=== PATIENT | female | born 1965 | race Caucasian/White ===

== ENCOUNTER 2018-08-18 11:37 | Outpatient (REF) | payer MEDICARE, SELFPAY ==
[2018-08-18 13:32] LABS: T4 13.4 ug/dL (4.5-12.5)
[2018-08-18 21:26] LABS: T3,Free 2.6 pg/ml (2.8-5.3)
[2018-08-19 09:51] LABS: Thyroglobulin Antibody 23 U/mL (<61); Thyroperoxidase Antibody 36 U/mL (<61)
[2018-08-19 16:44] LABS: Thyroglobulin Antibody <1.8 IU/mL (<4.0); Thyroglobulin Tumor Marker 0.8 ng/mL
== END 2018-08-18 11:57 ==
LOC: NCHCN 11:37
PROVIDERS: PCP Nurse Practitioner Gerontology; Visit Provider Nurse Practitioner
DX: Z85.850 Personal history of malignant neoplasm of thyroid (principal); Z90.89 Acquired absence of other organs
CPT/HCPCS: 86376; 84432; 84436; 84443; 84481; 86800

== ENCOUNTER 2018-11-22 17:52 | Emergency (ER) | payer MEDICARE, SELFPAY ==
[2018-11-22 18:14] VITALS: BP 160/88; PULSE 80; RESP 16; TEMP 37.2; O2SAT 95
[2018-11-22 19:16] VITALS: RESP 16
--- NOTE | 2018-11-22 19:24 | ED.GENADUL_ITS ---
Discharge Plan Disposition Patient Disposition: HOME Discharge Details Chief Complaint: GenMedical Clinical Impression: Sciatica Primary Care Provider: Santa Serrano ED Provider: Akash Heath Home Meds and New Rx's Prescriptions: New lidocaine 5 % adhesive patch,medicated 1 patch TP DAILY Qty: 15 RF: 0 Continued lisinopril 2.5 MG tablet 40 mg PO DAILY Qty: 90 RF: 3 pioglitazone 15 mg Tablet 15 mg PO DAILY RF: 0 atorvastatin 40 mg Tablet 40 mg PO DAILY RF: 0 aspirin [Aspir-81] 81 mg Tablet,Delayed Release (Dr/Ec) 1 tab PO DAILY RF: 0 levothyroxine 25 mcg Tablet 225 mcg PO DAILY RF: 0 calcitriol 0.25 mcg Capsule 1 tab PO DAILY RF: 0 Levemir FlexTouch U-100 Insuln 100 unit/mL (3 mL) Insulin Pen 30 units subcut BID RF: 0 Dexilant 60 mg Capsule,Biphase Delayed Releas 1 cap PO DAILY RF: 0 Eliquis 2.5 mg Tablet 2.5 mg PO BID RF: 0 Discharge Instructions Instructions: Sciatica (ED) Additional Instructions: Please use lidocaine patches as prescribed. Please take Tylenol 650 mg every 6 hours as needed for pain. For severe pain that is refractory to treatment above, please take ibuprofen 200mg every 6 hours. Please follow-up with your primary care physician. Return to the ER for any worsening or new concerning symptoms. Referrals: Santa Serrano, [employer] [Primary Care Provider] - Medical Decision Making 53-year-old female with multiple medical problems here with right lower extremity pain that radiates intermittently from her low back/buttock into her lateral right leg. Positive straight leg test. Patient is neurovascular intact distally with strong pulses. No signs of cauda equina syndrome. Suspect sciatica. Plan to treat with Toradol IV low dose and lidocaine patch. Patient was instructed to use acetaminophen and lidocaine patches and to only use ibuprofen for severe pain given potential interaction with some of her other medications. I encouraged her to follow-up with her primary care physician and to return should have any worsening or new concerning symptoms. HPI General Mode of arrival: ambulatory . Date/Time Provider Initiated Documentation: 11/22/18 18:11 . Limitations to Documentation: no limitations . Information obtained by: patient . HPI Narrative: 53-year-old female with multiple medical problems include congenital mutism, here with chief complaint of leg pain. Patient notes pain in her right lateral leg that radiates from her buttock down to her ankle started about 3-4 days ago and has persisted. Pain is sharp. Pain is severe at times. No associated numbness. A coater carbon paper was utilized for history, examination, and explanation of treatment plan. Related Data Home Medications Medication Instructions Recorded Confirmed lisinopril 40 mg PO DAILY #90 tab-cap 09/12/14 11/22/18 Dexilant 1 cap PO DAILY 11/22/18 11/22/18 Eliquis 2.5 mg PO BID 11/22/18 11/22/18 Levemir FlexTouch U-100 Insuln 30 units SUBCUT BID 11/22/18 11/22/18 aspirin [Aspir-81] 1 tab PO DAILY 11/22/18 11/22/18 atorvastatin 40 mg PO DAILY 11/22/18 11/22/18 calcitriol 1 tab PO DAILY 11/22/18 11/22/18 levothyroxine 225 mcg PO DAILY 11/22/18 11/22/18 lidocaine 1 patch TP DAILY #15 each 11/22/18 pioglitazone 15 mg PO DAILY 11/22/18 11/22/18 Previous Rx's Medication Instructions Recorded lidocaine 1 patch TP DAILY #15 each 11/22/18 Allergies Allergy/AdvReac Type Severity Reaction Status Date / Time No Known Allergies Allergy Unverified 10/13/14 21:19 General Stated Complaint: GenMedical DARRON: 3 Review of Systems Constitutional Denies fever(s) Gastrointestinal Denies abdominal pain Musculoskeletal Reports radiating pain into limb and Reports other (Right lower back pain) Neurologic Reports as per HPI [facility] Surgical History Abdominal hysterectomy Endometrial Biopsy (03/01/14) Family History Mother Essential hypertension Father No problems noted. Sister Mental disorder Grandfather Mental disorder Grandfather No problems noted. Grandmother No problems noted. Grandmother No problems noted. Social History Smoking and Tabacco status: Current every day Exam Const General: cooperative and no acute distress HENMT Head: normocephalic and atraumatic Mouth: moist mucous membranes Eyes Conjunctivae: normal conjunctivae Sclera: normal sclerae EOM: EOM intact bilaterally Neck Neck: trachea midline and supple Resp Auscultation: clear to auscultation bilaterally, no rales, no rhonchi and no wheezes Cardio Jugular venous pressure: no JVD Rate: regular rate and not tachycardic Rhythm: regular rhythm GI Palpation: soft, not firm, no guarding, no masses, not rigid and nontender Other: No swelling or tenderness of groin Back/Spine/Pelvis Thoracic/Lumbar Spine: straight leg raise positive and other (Paraspinal right lumbar) Skin General skin exam: no rashes or lesions noted Neuro General: alert, awake, oriented x3 and tone normal Motor: other (LE strength 5/5) Sensory Exam: no sensory deficits noted and other (no saddle anesth) Extrem General: no edema Psych Appearance: grossly normal Mental Status: mental status grossly normal Course Vital Signs Temperature 37.2 C 11/22/18 18:14 Pulse 80 11/22/18 18:14 Respiratory Rate 16 11/22/18 18:14 Blood Pressure 160/88 H 11/22/18 18:14 Pulse Oximetry 95 11/22/18 18:14 Temperature 37.2 C 11/22/18 18:14 Temperature Source Skin 11/22/18 18:14 Pulse 80 11/22/18 18:14 Respiratory Rate 16 11/22/18 19:16 Respiratory Effort Non-Labored 11/22/18 19:16 Respiratory Depth Normal 11/22/18 19:16 Respiratory Pattern Normal 11/22/18 19:16 Blood Pressure 160/88 H 11/22/18 18:14 Blood Pressure Position Sitting 11/22/18 18:14 Pulse Oximetry 95 11/22/18 18:14 Oxygen Delivery Method Room Air 11/22/18 18:14 Oxygen Flow Rate 0 11/22/18 18:14
[2018-11-22] MEDS: Acetaminophen 325 MG TAB 650 MG PO (19:41)
[2018-11-22] MEDS: Lidocaine 5% Patch 1 PATCH (19:41)
[2018-11-22] MEDS: Ketorolac 15 MG/ML VIAL IVP (19:42)
[2018-11-22 19:59] VITALS: BP 140/68; PULSE 80; RESP 16; TEMP 37.2; O2SAT 95
== END 2018-11-22 19:57 | disposition home or self-care (01) ==
PROVIDERS: Emergency Provider Student in an Organized Health Care Education/Training Program; PCP Nurse Practitioner Gerontology
DX: M54.31 Sciatica, right side (principal); H91.3 Deaf nonspeaking, not elsewhere classified; J44.9 Chronic obstructive pulmonary disease, unspecified; F17.210 Nicotine dependence, cigarettes, uncomplicated; E11.9 Type 2 diabetes mellitus without complications; Z79.4 Long term (current) use of insulin; I10 Essential (primary) hypertension
CPT/HCPCS: 96374; 99284; J1885

== ENCOUNTER 2019-02-15 14:12 | Outpatient (CLI) | payer MEDICARE, SELFPAY ==
[2019-02-15 15:16] LABS: Hemoglobin A1C 8.2 % (4.5-6.2)
[2019-02-15 15:26] LABS: TSH 0.02 uIU/mL (0.358-3.74)
== END 2019-02-15 14:32 ==
PROVIDERS: PCP Nurse Practitioner Gerontology; Visit Provider Internal Medicine Endocrinology, Diabetes & Metabolism
DX: E11.65 Type 2 diabetes mellitus with hyperglycemia (principal); Z79.4 Long term (current) use of insulin
CPT/HCPCS: 36415; 83036; 84443

== ENCOUNTER 2019-06-28 16:35 | Outpatient (REF) | payer MEDICARE, SELFPAY ==
[2019-06-28 23:05] LABS: Hemoglobin A1C 7.4 % (4.5-6.2)
[2019-06-28 23:17] LABS: FREE T4 1.25 ng/dL (0.76-1.46); TSH 0.43 uIU/mL (0.36-3.74)
[2019-06-29 17:20] LABS: T3,Free 2.8 pg/ml (2.8-5.3)
== END 2019-06-28 16:55 ==
LOC: NCHCN 16:35
PROVIDERS: PCP Family Medicine; Visit Provider Family Medicine
DX: E11.9 Type 2 diabetes mellitus without complications (principal); E03.9 Hypothyroidism, unspecified
CPT/HCPCS: 83036; 84439; 84443; 84481

== ENCOUNTER 2019-08-09 10:53 | Outpatient (CLI) | payer MEDICARE, SELFPAY ==
--- NOTE | 2019-08-09 13:25 | DI.MAMMO_ITS ---
EXAM: MAMMO SCREENING CLINICAL HISTORY: SCREENING, Z12.31 TECHNIQUE: Mammograms were interpreted according to the usual protocol including computer analysis w [employer] CAD system, tomosynthesis and C-view imaging. FINDINGS: The breasts are of moderate density. There are multiple well-circumscribed intra mammary nodules see n. A nodule in the upper outer quadrant of the right breast appears to have increased in size in comp [place] with examination of February/2014 now measuring about 12 millimeters in greatest diameter. Ultras ound suggested for correlation. No other significant change seen. IMPRESSION: Right breast ultrasound recommended for 12 millimeter well-circumscribed mass which is increased in s ize in comparison with prior study. Category 0. Breast density, category B. BI-RADS Cat 0 - Assessment Incomplete: Need additional imaging evaluation. Breast Density - Category B - Scattered areas of fibroglandular density. Patient will receive a letter notifying them of these results.
== END 2019-08-09 11:13 ==
PROVIDERS: PCP Internal Medicine; Visit Provider Family Medicine
DX: Z12.31 Encounter for screening mammogram for malignant neoplasm of breast (principal); R92.8 Other abnormal and inconclusive findings on diagnostic imaging of breast
CPT/HCPCS: 77063; 77067

== ENCOUNTER 2019-09-11 14:49 | Emergency (ER) | payer MEDICARE, SELFPAY ==
[2019-09-11 14:56] VITALS: BP 135/73; PULSE 79; RESP 18; TEMP 36.6; O2SAT 96
--- NOTE | 2019-09-11 15:49 | W.ED.GENAD ---
Discharge Plan Disposition Patient Disposition: HOME Condition: Stable Discharge Details Chief Complaint: Orthopedic Clinical Impression: Cellulitis, Foot arthropathy Primary Care Provider: Aviva Reece ED Provider: Karen Mondragon Home Meds and New Rx's Prescriptions: New cephalexin [Keflex] 500 mg capsule 500 mg PO TID 7 Days Qty: 21 RF: 0 Continued lisinopril 2.5 MG tablet 40 mg PO DAILY Qty: 90 RF: 3 atorvastatin 40 mg Tablet 40 mg PO DAILY RF: 0 aspirin [Aspir-81] 81 mg Tablet,Delayed Release (Dr/Ec) 1 tab PO DAILY RF: 0 levothyroxine 25 mcg Tablet 175 mcg PO DAILY RF: 0 calcitriol 0.25 mcg Capsule 1 tab PO DAILY RF: 0 Levemir FlexTouch U-100 Insuln 100 unit/mL (3 mL) Insulin Pen 30 units subcut BID RF: 0 Dexilant 60 mg Capsule,Biphase Delayed Releas 1 cap PO DAILY RF: 0 Eliquis 2.5 mg Tablet 2.5 mg PO BID RF: 0 No Action Victoza 2-Roberto 0.6 mg/0.1 mL (18 mg/3 mL) Pen Injector SUBCUT DAILY RF: 0 ropinirole [Requip] 0.25 mg Tablet 0.25 mg PO HS RF: 0 metoprolol tartrate 37.5 mg Tablet 40 mg PO DAILY RF: 0 Discharge Instructions Instructions: Cellulitis (ED) Additional Instructions: Avoid footwear that is tight and presses on the top of your foot. Be sure to wear stretchable loose foot wear, rest and elevate your left foot is much as possible. Take Tylenol as needed and directed for pain. Take the antibiotics until finished. Call tomorrow to schedule a follow-up appointment with podiatry for further evaluation. Return to the emergency department if you develop any worsening or new concerning symptoms such as fever, increased pain, redness or swelling. Referrals: Evelio Andrade DPM [[facility]] - Discharge Data Discharge Date/Time-TO BE ENTERED AT DEPARTURE: 09/11/19 17:10 Discharge Physician: Karen Mondragon Medical Decision Making 54-year-old female with a history of asthma, COPD, deaf mutism, hypertension, diabetes, pulmonary embolism on Eliquis presents with left foot pain since last night. History provided through sign language line. She has a bony protuberance that appears likely consistent with longstanding bony deformity either from footwear or congenital. There is mild surrounding erythema consistent with either irritation from shoes or a very mild early cellulitis. There is no other erythema, edema on the foot or ankle. First MTP joint normal to inspection. Neurovascularly intact. Patient was concerned about her foot due to her history of diabetes or concerned about a broken bone. Will obtain an x-ray and give a dose of Tylenol. If x-ray negative, will give a prescription for antibiotics for possible early cellulitis and have patient follow-up with podiatry for reevaluation. 1654 --x-ray noted degenerative changes and an old unhealed avulsion fracture but no acute fracture or dislocation. Patient feels better. Results and plan provided through language line. Discussed that this appears likely due to a chronic malformation of the bone with a possible corn versus early infection developing on top of the bone due to irritation and rubbing. Patient advised the importance of wearing stretchable soft footwear, rest, elevate and take Tylenol as needed. She was sent home with a prescription for Keflex. She was advised to call podiatry tomorrow for follow-up and for annual foot exams with her history of diabetes. Medical Records Medical records reviewed: Yes I reviewed the patient's medical records. Imaging Data Radiologic Study: Radiologist's impression: XR Left Foot Complete Exam date and time: 09/11/2019 4:23 PM Age: 54 years old Clinical history: Left; Patient HX: Foot pain/corn top of foot radiating to L 1st toe TECHNIQUE: Imaging protocol: XR Left foot. Views: 3 or more views. COMPARISON: No relevant prior studies available. FINDINGS: Bones/joints: There is no evidence of acute fracture.There is no evidence of malalignment or dislocation. Degenerative changes in the tarsometatarsal joints. Well-corticated Unhealed avulsion fracture over the dorsal aspect of the tarsometatarsal joints. Soft tissues: Normal. IMPRESSION: 1. There is no evidence of acute fracture.There is no evidence of malalignment or dislocation. 2. Degenerative changes in the tarsometatarsal joints. 3. Well-corticated Unhealed avulsion fracture over the dorsal aspect of the tarsometatarsal joints. HPI General Date/Time Provider Initiated Documentation: 09/11/19 15:05. History of Present Illness 54 year old F presents to the emergency department with the chief complaint of L foot pain, described as moderate, Quality is described as aching and sharp, and is localized to the lower extremity (L foot ). Patient reports no radiation. Patient started experiencing this day(s) (since last night) and it has been constant. No relieving factors improve symptom(s), Other factors that worsen symptoms (to touch) . Patient notes no other symptoms.. Patient did receive the following treatments prior to arrival, none Related Data Home Medications Medication Instructions Recorded Confirmed lisinopril 40 mg PO DAILY #90 tab-cap 09/12/14 09/11/19 Dexilant 1 cap PO DAILY 11/22/18 09/11/19 Eliquis 2.5 mg PO BID 11/22/18 09/11/19 Levemir FlexTouch U-100 Insuln 30 units SUBCUT BID 11/22/18 09/11/19 aspirin [Aspir-81] 1 tab PO DAILY 11/22/18 09/11/19 atorvastatin 40 mg PO DAILY 11/22/18 09/11/19 calcitriol 1 tab PO DAILY 11/22/18 09/11/19 levothyroxine 175 mcg PO DAILY 11/22/18 09/11/19 cephalexin [Keflex] 500 mg PO TID 7 Days #21 cap 09/11/19 liraglutide [Victoza 2-Roberto] mg SUBCUT DAILY 09/11/19 metoprolol tartrate 40 mg PO DAILY 09/11/19 ropinirole [Requip] 0.25 mg PO HS 09/11/19 09/11/19 Previous Rx's Medication Instructions Recorded cephalexin [Keflex] 500 mg PO TID 7 Days #21 cap 09/11/19 Allergies Allergy/AdvReac Type Severity Reaction Status Date / Time No Known Allergies Allergy Unverified 09/11/19 15:10 General Stated Complaint: Orthopedic DARRON: 3 Review of Systems All systems reviewed & are unremarkable except as noted in HPI and below Constitutional Constitutional: Reports as per HPI, Denies chills and Denies fever(s) Eyes Eyes: Denies blurry vision ENT Ears, Nose, Mouth, and Throat: Denies dizziness, Denies sore throat and Denies throat swelling Cardiovascular Cardiovascular: Denies chest pain and Denies dyspnea Respiratory Respiratory: Denies cough and Denies dyspnea Gastrointestinal Gastrointestinal: Denies abdominal pain, Denies diarrhea and Denies vomiting Genitourinary Genitourinary: Denies hematuria and Denies dysuria Musculoskeletal Musculoskeletal: Denies back pain and Denies numbness Integumentary/Breasts Skin/Breast: Denies lesions and Denies rash Neurologic Neurologic: Denies dizziness, Denies focal weakness and Denies numbness Allergic/Immunologic Allergic/Immunologic: Denies throat swelling [facility] Medical History Asthma (Inactive) COPD (chronic obstructive pulmonary disease) (Chronic) Deaf-mutism, congenital (Inactive) Hyperlipidemia (Inactive) Hypertension (Inactive) Insulin dependent diabetes mellitus (Inactive) Pulmonary embolism (Chronic) Surgical History Abdominal hysterectomy [facility] 03/22/14 [facility] Endometrial Biopsy (03/01/14) [facility] History of thyroidectomy (Chronic) Family History Mother Essential hypertension Father No problems noted. Sister Mental disorder OCD Grandfather Mental disorder ALZ Grandfather No problems noted. Grandmother No problems noted. Grandmother No problems noted. Social History Smoking/Tobacco Use Status: Current every day Drug use: Never Do you feel safe in your relationship?: Yes Exam Const General: cooperative, healthy appearing and no acute distress [facility] Head: normal to inspection Mouth: oral mucosae normal Eyes General: appearance normal, both eyes and all related structures Neck Neck: normal visual inspection Resp Effort & Inspection: normal respiratory effort and able to speak in complete sentences Cardio Rate: regular rate Skin General skin exam: no rashes or lesions noted Neuro General: alert, awake and oriented x3 Motor: muscle tone normal throughout Extrem Ankle/foot/toe images: 1. Bony protuberance with mild overlying erythema and significant tenderness to palpation. 2. Tenderness extends from bony protuberance down to great w/o edema, erythema, ecchymosis, lesions or rash. No evidence of erythematous, hot, tender first MTP joint. Other: L DP/PT pulses intact. Left ankle without evidence of trauma, tenderness or infection. Left heel nontender Psych Appearance: grossly normal Affect: normal affect Course Vital Signs Vital signs: Vital Signs Temperature 97.9 F 09/11/19 14:56 Pulse 79 09/11/19 14:56 Respiratory Rate 18 09/11/19 14:56 Blood Pressure 135/73 09/11/19 14:56 Pulse Oximetry 96 09/11/19 14:56 Temperature 97.9 F 09/11/19 14:56 Temperature Source Temporal Artery Scan 09/11/19 14:56 Pulse 79 09/11/19 14:56 Respiratory Rate 18 09/11/19 14:56 Respiratory Effort 09/11/19 15:27 Blood Pressure 135/73 09/11/19 14:56 Blood Pressure Position Sitting 09/11/19 14:56 Pulse Oximetry 96 09/11/19 14:56 Oxygen Delivery Method Room Air 09/11/19 14:56 Oxygen Flow Rate 0 09/11/19 14:56
[2019-09-11] MEDS: Acetaminophen 500 MG TAB 1000 MG PO (15:59)
--- NOTE | 2019-09-11 16:20 | DI.RAD_ITS ---
EXAM: XR FOOT LT COMPLETE INDICATION: foot pain/corn top of foot radiating to L 1st toe. COMPARISON: No exams were available for comparison TECHNIQUE: 2D digital imaging was performed. FINDINGS: No acute fracture or dislocation is seen. There are degenerative changes with prominent spurring at the tarsal metatarsal joints. A small heel spur is seen. IMPRESSION: No acute abnormality.
--- NOTE | 2019-09-11 16:33 | DI.VRAD_ITS ---
PROCEDURE INFORMATION: Exam: XR Left Foot Complete Exam date and time: 09/11/2019 4:23 PM Age: 54 years old Clinical history: Left; Patient HX: Foot pain/corn top of foot radiating to L 1st toe TECHNIQUE: Imaging protocol: XR Left foot. Views: 3 or more views. COMPARISON: No relevant prior studies available. FINDINGS: Bones/joints: There is no evidence of acute fracture.There is no evidence of malalignment or dislocation. Degenerative changes in the tarsometatarsal joints. Well-corticated Unhealed avulsion fracture over the dorsal aspect of the tarsometatarsal joints. Soft tissues: Normal. IMPRESSION: 1. There is no evidence of acute fracture.There is no evidence of malalignment or dislocation. 2. Degenerative changes in the tarsometatarsal joints. 3. Well-corticated Unhealed avulsion fracture over the dorsal aspect of the tarsometatarsal joints. Dictated and Authenticated by: Rochelle Salinas MD. Ordering:ADRIANNA Jones MD
== END 2019-09-11 17:10 | disposition home or self-care (01) ==
PROVIDERS: Emergency Provider Physician Assistant; PCP Family Medicine
DX: L03.116 Cellulitis of left lower limb (principal); M12.872 Other specific arthropathies, not elsewhere classified, left ankle and foot; I10 Essential (primary) hypertension; J44.9 Chronic obstructive pulmonary disease, unspecified; F17.210 Nicotine dependence, cigarettes, uncomplicated; E11.9 Type 2 diabetes mellitus without complications; Z79.4 Long term (current) use of insulin
CPT/HCPCS: 99284; 73630

== ENCOUNTER 2019-09-23 19:20 | Emergency (ER) | payer MEDICARE, SELFPAY ==
[2019-09-23] VITALS (39 sets, daily range): BP systolic 135–159; BP diastolic 56–93; PULSE 75–94; RESP 9–26; TEMP 36.4; O2SAT 92–98
--- NOTE | 2019-09-23 19:56 | ED.GENADUL_ITS ---
Discharge Plan Disposition Patient Disposition: HOME Condition: Stable Discharge Details Chief Complaint: Chest Pain Clinical Impression: Gastritis Primary Care Provider: Aviva Reece ED Provider: Dez Mcneil Home Meds and New Rx's Prescriptions: New sucralfate [Carafate] 1 gram tablet 1 gm PO BID Qty: 10 RF: 0 Continued lisinopril 2.5 MG tablet 40 mg PO DAILY Qty: 90 RF: 3 atorvastatin 40 mg Tablet 40 mg PO DAILY RF: 0 aspirin [Aspir-81] 81 mg Tablet,Delayed Release (Dr/Ec) 1 tab PO DAILY RF: 0 levothyroxine 25 mcg Tablet 175 mcg PO DAILY RF: 0 calcitriol 0.25 mcg Capsule 1 tab PO DAILY RF: 0 Levemir FlexTouch U-100 Insuln 100 unit/mL (3 mL) Insulin Pen 30 units subcut BID RF: 0 Dexilant 60 mg Capsule,Biphase Delayed Releas 1 cap PO DAILY RF: 0 Eliquis 2.5 mg Tablet 2.5 mg PO BID RF: 0 Victoza 2-Roberto 0.6 mg/0.1 mL (18 mg/3 mL) Pen Injector SUBCUT DAILY RF: 0 ropinirole [Requip] 0.25 mg Tablet 0.25 mg PO HS RF: 0 metoprolol tartrate 37.5 mg Tablet 40 mg PO DAILY RF: 0 Discharge Instructions Instructions: Gastritis (ED) Additional Instructions: You may benefit from sleeping with the head of the bed elevated 2-3 pillows. Please observe a bland diet. Please take Carafate as prescribed twice daily for 5 days. Continue all of your regularly prescribed medications. Return if you develop a fever, worsening discomfort, or any other acute concerns. Medical Decision Making <Dez Mcneil MD - Last Filed: 09/23/19 22:52> 54-year-old female presents from home with her partner. She communicates primarily through sign language and an automotive parts interpreter was utilized during communication. She states she is had 3 hours epigastric pressure sensation. She states it was worse after eating greasy breakfast foods. She did not vomit. She has not had difficulty breathing. She continues to take Eliquis for history of PE. 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 She has unremarkable vital signs, she has tenderness in the epigastrium on palpation, but no evidence of rebound or guarding. Differential diagnosis includes GERD, esophageal spasm, acute coronary syndrome, biliary colic. Patient given GI cocktail, screening laboratories obtained, she is referred for EKG and chest x-ray. Laboratories: White blood cell count 9, hematocrit 48, platelets 286. Sodium 140, potassium 3.9, chloride 102, bicarb 31, BUN 17, creatinine 1.0, glucose 190, AST 16, ALT 22, alk phos 132. Chest radiograph with minor right midlung field linear scar, versus atelectasis. 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 Consistent with patient's stated history. CT abdomen: Notes unremarkable bowel pattern, no obstruction no inflammation. Normal appendix. No free air. No acute findings noted. Patient observed on desk monitor. Pulse and blood pressure both improved to 149/64 with a pulse of 78. Discussed with the patient that this is likely gastritis and will benefit from conservative management and dietary improvements. If second troponin is negative, anticipate discharge to home. Please see Dr Mckeon note regarding final impression and disposition. ECG Data Attestation: I personally reviewed and interpreted this ECG (s) as follows: Prior ECG tracings: available for review Interpretation: Normal sinus rhythm with a rate of 86, left bundle branch block pattern. Nonspecific T wave changes present inferiorly. There is no ST segment elevation. Most recent comparison is from September 2014. The left bundle branch is new since that time, patient does note chest surgery in the interim as per my HPI. <Ney Cast MD - Last Filed: 09/23/19 23:45> pt's second troponin negative, only has minimal pain now. Feel she is safe for d/c and advised f/u with pcp and return precautions given HPI <Dez Mcneil MD - Last Filed: 09/23/19 22:52> General Mode of arrival: ambulatory . Date/Time Provider Initiated Documentation: 09/23/19 19:22 . Limitations to Documentation: language barrier . 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 History of Present Illness 54 year old F presents to the emergency department with the chief complaint of Epigastric pressure sensation since eating 3 hours ago, described as moderate, Quality is described as constant, and is localized to the abdomen. Patient abdomen. Patient started experiencing this hour(s) and it has been constant. No relieving factors improve symptom(s), Eating worsens symptoms . Patient notes loss of appetite. Patient did receive the following treatments prior to arrival, none HPI Narrative: HPI obtained with assistance of automotive parts interpreter Related Data Home Medications Medication Instructions Recorded Confirmed lisinopril 40 mg PO DAILY #90 tab-cap 09/12/14 09/23/19 Dexilant 1 cap PO DAILY 11/22/18 09/23/19 Eliquis 2.5 mg PO BID 11/22/18 09/23/19 Levemir FlexTouch U-100 Insuln 30 units SUBCUT BID 11/22/18 09/23/19 aspirin [Aspir-81] 1 tab PO DAILY 11/22/18 09/23/19 atorvastatin 40 mg PO DAILY 11/22/18 09/23/19 calcitriol 1 tab PO DAILY 11/22/18 09/23/19 levothyroxine 175 mcg PO DAILY 11/22/18 09/23/19 Victoza 2-Roberto mg SUBCUT DAILY 09/11/19 metoprolol tartrate 40 mg PO DAILY 09/11/19 09/23/19 ropinirole [Requip] 0.25 mg PO HS 09/11/19 09/23/19 sucralfate [Carafate] 1 gm PO BID #10 tab 09/23/19 Previous Rx's Medication Instructions Recorded sucralfate [Carafate] 1 gm PO BID #10 tab 09/23/19 Allergies Allergy/AdvReac Type Severity Reaction Status Date / Time tramadol Allergy Severe Hives Unverified 09/23/19 19:57 General Stated Complaint: Chest Pain DARRON: 2 Review of Systems <Dez Mcneil MD - Last Filed: 09/23/19 22:52> Narrative: Anticoagulated with Eliquis which she states she has been taking. No recent changes to medications. Denies difficulty breathing, fever. 6 systems reviewed and otherwise negative PFSH <Dez Mcneil MD - Last Filed: 09/23/19 22:52> Medical History Asthma (Inactive) COPD (chronic obstructive pulmonary disease) (Chronic) Deaf-mutism, congenital (Inactive) Hyperlipidemia (Inactive) Hypertension (Inactive) Insulin dependent diabetes mellitus (Inactive) Pulmonary embolism (Chronic) Family History Mother Essential hypertension Father No problems noted. Sister Mental disorder OCD Grandfather Mental disorder ALZ Grandfather No problems noted. Grandmother No problems noted. Grandmother No problems noted. Social History Smoking/Tobacco Use Status: Current every day Tobacco Type: cigarettes Alcohol Intake: never Drug use: Never Substance use type: does not use Do you feel safe at home: Yes Do you feel safe in your relationship?: Yes Exam <Dez Mcneil MD - Last Filed: 09/23/19 22:52> Narrative Exam Narrative: GEN: awake, alert, oriented 3. Pleasant, well groomed, interactive. HEAD: Normocephalic, atraumatic ENT: Mucous membranes moist, oropharynx unremarkable, External ear exam unremarkable EYES: PERRL, EOMI NECK: Full ROM, no MAMIE, no menigismus CHEST/RESP: Nontender, clear to auscultation bilateral, no wheeze/rhonchi/rales CARDIOVASCULAR: RRR, no murmur, rub kasandra. 2+ Rad pulse bilateral ABDOMEN: Soft, tender in epigastrium without rebound or guarding present, no mass. +Bowel sounds EXT: Full ROM, no edema, no rash Neuro: Grossly normal neurologic exam, conversant, interactive. Psych: Speech fluent, thoughts congruent, affect normal Course <Dez Mcneil MD - Last Filed: 09/23/19 22:52> Vital Signs Vital signs: Vital Signs Temperature 36.4 C 09/23/19 19:27 Pulse 94 H 09/23/19 19:27 Respiratory Rate 18 09/23/19 19:27 Blood Pressure 159/77 H 09/23/19 19:27 Pulse Oximetry 98 09/23/19 19:27 Temperature 36.4 C 09/23/19 19:27 Temperature Source Skin 09/23/19 19:27 Pulse 94 H 09/23/19 19:27 Respiratory Rate 18 09/23/19 19:27 Blood Pressure 159/77 H 09/23/19 19:27 Blood Pressure Position Supine 09/23/19 19:27 Pulse Oximetry 98 09/23/19 19:27 Oxygen Delivery Method Room Air 09/23/19 19:27 Oxygen Flow Rate 0 09/23/19 19:27 Pain Level 9 09/23/19 19:27
[2019-09-23] MEDS: Pantoprazole 40 MG VIAL IVP (20:17)
[2019-09-23] MEDS: Normal Saline 1,000 ML 125 ML IV (20:18)
[2019-09-23 20:29] LABS: Abs Immature Grans 0.03 k/cumm (0.0-0.09); Absolute Basophil Count 0.02 k/cumm (0.0-0.2); Absolute Eosinophil Count 0.21 k/cumm (0.0-0.7); Absolute Lymphocyte Count 1.51 k/cumm (1.2-3.4); Absolute Monocyte Count 0.45 k/cumm (0.11-0.7); Absolute Neutrophil Count 7.15 k/cumm (1.2-6.7); Basophils % 0.2; Eosinophils % 2.2; HCT 48.1 % (36.0-46.0); HGB 15.9 g/dL (12.0-15.5); Immature Grans % 0.3; Lymphocytes % 16.1; Mean Corp. HGB Concentration 33.1 g/dL (32.0-36.0); Mean Corpuscular Hemoglobin 27.8 pg (27.0-33.0); Mean Corpuscular Volume 84.2 fL (80-95); Mean Platelet Volume 9.5 fL (8.0-11.0); Monocytes % 4.8; Neutrophils % 76.4; Platelet Count 286 x1000/uL (130-400); RBC 5.71 m/cumm (4.00-5.20); RBC Distribution Width 13.9 % (11.7-14.6); White Blood Cell Count 9.37 k/cumm (4.4-10.8)
--- NOTE | 2019-09-23 20:30 | DI.RAD_ITS ---
EXAM: XR CHEST 2V PA LATERAL INDICATION: epigastric pain. COMPARISON: CHEST 2 VIEWS PA,LAT from 05/18/2013 CHEST WITH CONTRAST from 05/19/2013 CHEST 2 VIEWS PA,LAT from 09/25/2014 TECHNIQUE: 2D digital imaging was performed. FINDINGS: Heart size is within normal limits. There is again seen a right-sided thoracic aortic arch. There i s atelectasis or scarring in the right mid lung. No focal consolidating infiltrates, effusions or pn eumothoraces are identified. Age-appropriate degenerative changes are seen in the spine. Surgical c lips are seen in the mediastinum. IMPRESSION: Scarring or atelectasis seen in the right mid lung.
[2019-09-23 20:41] LABS: PTT Activated 27.2 sec (21.0-31.4); Prothrombin Time 9.8 sec (9.3-11.0)
--- NOTE | 2019-09-23 20:41 | DI.VRAD_ITS ---
PROCEDURE INFORMATION: Exam: XR Chest, 2 Views Exam date and time: 09/23/2019 7:56 PM Age: 54 years old Clinical indication: Other: Epigastric pain TECHNIQUE: Imaging protocol: XR of the chest Views: 2 views. COMPARISON: CR CHEST 2 VIEWS PA,LAT 09/25/2014 12:10 AM FINDINGS: Lungs: Minor right mid lung field linear atelectasis versus scar. Pleural space: Unremarkable. No pleural effusion. No pneumothorax. Heart/Mediastinum: Previous mediastinal surgery. Cardiac apex left-sided. Vasculature: Appearance suggesting a right-sided aortic arch. Upper abdomen: Upper abdominal images show right-sided liver. Bones/joints: Unremarkable. IMPRESSION: 1. Minor right mid lung field linear scar versus atelectasis. 2. Anomalous right-sided aortic arch. Surgical clips clips seen within the mediastinum. Dictated and Authenticated by: Kurtis Jackman MD. Ordering:AYAD Garces MD
[2019-09-23 20:43] LABS: ALT 22 U/L (14-59); AST 16 U/L (15-37); Albumin 3.6 g/dL (3.4-5.0); Anion Gap 6.9 mmol/L (3-11); BUN 17 mg/dL (7-18); Bilirubin, Total 0.4 mg/dL (0.2-1.0); CO2 31.1 mmol/L (21.0-32.0); Calcium 9.2 mg/dL (8.5-10.1); Chloride 102 mmol/L (98-107); Glucose 190 mg/dL (74-106); Lipase 290 U/L (73-393); Magnesium 1.9 mg/dL (1.8-2.4); Potassium 3.9 mmol/L (3.5-5.1); Sodium 140 mmol/L (136-145); Total Protein 7.8 g/dL (6.4-8.2)
[2019-09-23 20:44] LABS: Troponin I < 0.05 ng/Ml (<0.06)
[2019-09-23 20:55] LABS: Alkaline Phosphatase 132 U/L (46-116)
--- NOTE | 2019-09-23 21:50 | DI.CT_ITS ---
EXAM: CT ABDOMEN PELVIS W CLINICAL HISTORY: epigastric pain, nausea TECHNIQUE: Imaging Protocol: Axial computed tomography images with coronal and sagittal reformatted images were created and reviewed CONTRAST MATERIAL: Intravenous: Omnipaque 350 Contrast volume:100 mL contrast route:IV - Oral: No COMPARISON: ABD PELVIS WITH CONTRAST from 06/16/2014 FINDINGS: ABDOMEN: Lung Bases: Normal where visualized. Liver: There is diffuse decreased attenuation of the liver. This is consistent with fatty infiltrati on. No measurable mass. The portal, superior mesenteric and splenic veins are patent. Gallbladder and biliary tract: The patient is status post cholecystectomy. No biliary ductal dilatat ion is present. Pancreas: Normal density, no abnormal calcifications or inflammatory process. Spleen: Normal. Kidneys: Normal size, contour and axis. There is a 2 millimeter nonobstructing stone in the midpole o f the right kidney. No masses seen. Adrenal glands: No masses seen. Abdominal Aorta: There is atherosclerosis. No aneurysmal dilatation is present. PELVIS: Bladder: Symmetric distention, no gross wall thickening. Bowel: No obstruction or bowel wall thickening. The appendix is normal in size without evidence of ad jacent mesenteric fat stranding or adjacent fluid collection. Peritoneal cavity: No ascites, collection or mesenteric inflammatory response. Bones: Multilevel degenerative changes are present. If symptomatic further imaging may be performed. Reproductive organs: The patient appears to be status post hysterectomy. Lymph nodes: Unremarkable. Impression: No evidence of an acute abdomen or pelvis. DATA REPOSITORY: All CT scans at this facility are submitted to the National Radiology Data Registry (NRDR) Dose Index Registry (DIR) with the [employer] (ACR). RADIATION OPTIMIZATION: All CT scans at this facility use at least one of these dose optimization te chniques: automated exposure control; mA and/or kV adjustment per patient size (includes targeted exa ms where dose is matched to clinical indication); or iterative reconstruction.
[2019-09-23] MEDS: Omnipaque 350 MG/ML 100 ML BTL IJ (21:51)
--- NOTE | 2019-09-23 22:18 | DI.VRAD_ITS ---
PROCEDURE INFORMATION: Exam: CT Abdomen And Pelvis With Contrast Exam date and time: 09/23/2019 9:47 PM Age: 54 years old Clinical indication: Other: Epigastric pain, nausea TECHNIQUE: Imaging protocol: Computed tomography of the abdomen and pelvis with intravenous contrast. Radiation optimization: All CT scans at this facility use at least one of these dose optimization techniques: automated exposure control; mA and/or kV adjustment per patient size (includes targeted exams where dose is matched to clinical indication); or iterative reconstruction. COMPARISON: CT ABD PELVIS WITH CONTRAST 06/16/2014 12:18 AM FINDINGS: Liver: Mild fatty liver changes. Gallbladder and bile ducts: Cholecystectomy. No calcified stones. No ductal dilation. Pancreas: Normal. No ductal dilation. Spleen: Normal. No splenomegaly. Adrenals: Normal. No mass. Kidneys and ureters: Normal. No hydronephrosis. Stomach and bowel: Unremarkable bowel pattern. No obstruction. No bowel inflammation. Appendix: Normal appendix is visible. Intraperitoneal space: Unremarkable. No free air. No significant fluid collection. Vasculature: Atherosclerotic aortic changes without aneurysm. Lymph nodes: Unremarkable. No enlarged lymph nodes. Bladder: Unremarkable as visualized. Reproductive: Previous hysterectomy. Bones/joints: Degenerative lumbar spine disease most significant at L5-S1. Soft tissues: No abdominal wall hernia visible. IMPRESSION: 1. No acute findings of the abdomen or pelvis. 2. No bowel obstruction. 3. Normal appendix. 4. Fatty liver changes. 5. Previous cholecystectomy. 6. Previous hysterectomy. 7. Degenerative lumbar spine change. Dictated and Authenticated by: Kurtis Jackman MD. Ordering:AYAD Garces MD
[2019-09-23 23:31] LABS: Troponin I < 0.05 ng/Ml (<0.06)
--- NOTE | 2019-09-23 23:41 | NUR.NOTE ---
Nursing Note: Dismissal instructions to patient with use of video language monitor. All questions answered. Patient verbalized understanding of after care.
== END 2019-09-23 23:50 | disposition home or self-care (01) ==
PROVIDERS: Emergency Provider Emergency Medicine; PCP Family Medicine
DX: K29.00 Acute gastritis without bleeding (principal); R10.13 Epigastric pain; J44.9 Chronic obstructive pulmonary disease, unspecified; F17.210 Nicotine dependence, cigarettes, uncomplicated; E11.9 Type 2 diabetes mellitus without complications; Z79.4 Long term (current) use of insulin; Z79.01 Long term (current) use of anticoagulants; Z86.711 Personal history of pulmonary embolism; I10 Essential (primary) hypertension; H91.3 Deaf nonspeaking, not elsewhere classified
CPT/HCPCS: 36415; 80053; 83690; 93005; 96361; 96374; 96375; 96376; 99285; 71046; 74177; 83735; 84484; 85025; 85610; 85730; 93010; J3490

== ENCOUNTER 2019-11-29 19:49 | Observation (INO) | payer MEDICARE, SELFPAY ==
[2019-11-29] VITALS (12 sets, daily range): BP systolic 112–147; BP diastolic 56–76; PULSE 81–88; RESP 12–21; TEMP 36.5–36.9; O2SAT 92–95
--- NOTE | 2019-11-29 20:11 | W.ED.GENAD ---
Discharge Plan Disposition Patient Disposition: [facility] INPATIENT Condition: Fair Discharge Details Chief Complaint: CVA/TIA Clinical Impression: Unsteady gait Primary Care Provider: Aviva Reece ED Provider: Cameron Cui [place] Meds and New Rx's Prescriptions: No Action lisinopril 2.5 MG tablet 40 mg PO DAILY Qty: 90 RF: 3 atorvastatin 40 mg Tablet 40 mg PO DAILY RF: 0 aspirin [Aspir-81] 81 mg Tablet,Delayed Release (Dr/Ec) 1 tab PO DAILY RF: 0 levothyroxine 25 mcg Tablet 175 mcg PO DAILY RF: 0 calcitriol 0.25 mcg Capsule 1 tab PO DAILY RF: 0 Levemir FlexTouch U-100 Insuln 100 unit/mL (3 mL) Insulin Pen 30 units subcut BID RF: 0 Dexilant 60 mg Capsule,Biphase Delayed Releas 1 cap PO DAILY RF: 0 Eliquis 2.5 mg Tablet 2.5 mg PO BID RF: 0 Victoza 2-Roberto 0.6 mg/0.1 mL (18 mg/3 mL) Pen Injector 1.8 mg SUBCUT DAILY RF: 0 ropinirole [Requip] 0.25 mg Tablet 0.5 mg PO HS RF: 0 metoprolol succinate 50 mg Tablet Extended Release 24 Hr 50 mg PO DAILY AM RF: 0 Medical Decision Making Patient presenting with similar symptoms to this fall when she was thought to have sustained another CVA. Patient has diabetes, hypertension, hypercholesterolemia. She is on Eliquis for pulmonary embolus in the past. She has had coronary artery bypass. Review of admission to [facility] this fall showed an MRI which revealed multiple lacunar infarcts none of which were definitely acute. No acute vascular findings. Patient complaining of intermittent headache and difficulty ambulating. She appears to have a non-focal neurologic exam currently and I would give her an NIH score of 0. She is on Eliquis. Plan for noncontrast CT followed by CTA of head and neck. Laboratory studies sent. Will need admission for MRI and possible neurology consult tomorrow. Patient laboratory studies significant for elevated creatinine of 1.74. No history of CKD. Previous creatinines have been normal. She is getting IV fluids. CTA canceled. Noncontrast CT negative for acute changes. Patient remains unchanged clinically. Case discussed with hospitalist. Patient to be admitted overnight for observation with planned MRI tomorrow. Patient and boyfriend are both deaf. They communicate through ASL. Bingo Clerk available to me dionicio for entire visit. Patient is okay with communicating by written paper if necessary. Medical Records Medical records reviewed: Yes I reviewed the patient's medical records. Medical records narrative: I have reviewed the records that patient and boyfriend had with him from her admission in [place] last fall. Lab Data Lab results reviewed: Yes I reviewed the patient's lab results. ECG Data Attestation: I personally reviewed and interpreted this ECG (s) as follows: Prior ECG tracings: available for review Interpretation: Sinus rhythm at 84. Left bundle branch block which is old. HPI General Mode of arrival: ambulatory. Date/Time Provider Initiated Documentation: 11/29/19 20:10. Limitations to Documentation: no limitations. 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 HPI Narrative: Patient presents to ED with complaints of intermittent headache, unsteady gait and sensation of falling, questionable left-sided weakness. Symptoms have been intermittent since about 3 this afternoon. I have been worse this evening. Headache comes and goes and is nondescript. She does not have a spinning vertigo sensation but has a unsteady gait with a sense of falling while trying to walk. She has almost fallen 3 times. She felt like maybe the left lower extremity was a little weak earlier. She denies visual change, sensory change, weakness currently. Has a mild headache currently. She denies any type of chest pain or pressure. There is no shortness of breath. Related Data Home Medications Medication Instructions Recorded Confirmed lisinopril 40 mg PO DAILY #90 tab-cap 09/12/14 11/29/19 Dexilant 1 cap PO DAILY 11/22/18 11/29/19 Eliquis 2.5 mg PO BID 11/22/18 11/29/19 Levemir FlexTouch U-100 Insuln 30 units SUBCUT BID 11/22/18 11/29/19 aspirin [Aspir-81] 1 tab PO DAILY 11/22/18 11/29/19 atorvastatin 40 mg PO DAILY 11/22/18 11/29/19 calcitriol 1 tab PO DAILY 11/22/18 11/29/19 levothyroxine 175 mcg PO DAILY 11/22/18 11/29/19 Victoza 2-Roberto 1.8 mg SUBCUT DAILY 09/11/19 11/29/19 ropinirole [Requip] 0.5 mg PO HS 09/11/19 11/29/19 metoprolol succinate 50 mg PO DAILY AM 11/29/19 11/29/19 Allergies Allergy/AdvReac Type Severity Reaction Status Date / Time tramadol Allergy Severe Hives Unverified 11/29/19 20:20 General DARRON: 2 Review of Systems Narrative: 07/17 Review of Systems completed and is negative except as stated above in HPI (Systems reviewed: Const, Eyes, ENT, Resp, CV, GI, , MSK, Skin, Neuro) [facility] Medical History Asthma (Inactive) COPD (chronic obstructive pulmonary disease) (Chronic) Deaf-mutism, congenital (Inactive) Hyperlipidemia (Inactive) Hypertension (Chronic) Insulin dependent diabetes mellitus (Chronic) Pulmonary embolism (Chronic) Surgical History Abdominal hysterectomy [facility] 03/22/14 [facility] Endometrial Biopsy (03/01/14) [facility] History of thyroidectomy (Chronic) Family History Mother Essential hypertension Father No problems noted. Sister Mental disorder OCD Grandfather Mental disorder ALZ Grandfather No problems noted. Grandmother No problems noted. Grandmother No problems noted. Social History Smoking/Tobacco Use Status: Current every day Tobacco Type: cigarettes Alcohol Intake: never Drug use: Never Substance use type: does not use Do you feel safe at home: Yes Do you feel safe in your relationship?: Yes Exam Narrative Exam Narrative: Vitals: Afebrile. Mildly hypertensive but otherwise normal vitals and room air pulse oximetry. Const: Obese female in NAD. HEENT: NC/AT. Normal facial exam. Eyes: Normal conjunctiva and sclera. PERRL and EOMI. No nystagmus. Neck: Supple. Trachea midline. Lungs: Normal respiratory effort. Lungs are clear. Cor: RRR without murmur/gallop. Good radial pulses. GI: Soft. NT/ND. No guarding or rebound. Neuro: A+O x 3. Normal mentation; signing with ASL procurement clerk without issue. Cranial nerves II - XII grossly intact. No gross motor or sensory deficit. FTN normal. Gait not tested. Ext: No C/C/E. Skin: Warm and dry without rash.
[2019-11-29] MEDS: Normal Saline Flush 10 ML SYR IVP (20:40)
[2019-11-29 20:53] LABS: Abs Immature Grans 0.03 k/cumm (0.0-0.09); Absolute Basophil Count 0.02 k/cumm (0.0-0.2); Absolute Monocyte Count 0.42 k/cumm (0.11-0.7); Absolute Neutrophil Count 7.59 k/cumm (1.2-6.7); Basophils % 0.2; Eosinophils % 1.9; HCT 45.2 % (36.0-46.0); HGB 15.1 g/dL (12.0-15.5); Immature Grans % 0.3 %; Lymphocytes % 19.5; Mean Corp. HGB Concentration 33.4 g/dL (32.0-36.0); Mean Corpuscular Hemoglobin 28.4 pg (27.0-33.0); Mean Corpuscular Volume 85.1 fL (80-95); Mean Platelet Volume 9.9 fL (8.0-11.0); Monocytes % 4.1; Platelet Count 271 x1000/uL (130-400); RBC 5.31 m/cumm (4.00-5.20); RBC Distribution Width 13.7 % (11.7-14.6); White Blood Cell Count 10.26 k/cumm (4.4-10.8)
[2019-11-29 21:04] LABS: PTT Activated 27.2 sec (21.0-31.4)
[2019-11-29 21:11] LABS: ALT 21 U/L (14-59); AST 15 U/L (15-37); Albumin 3.5 g/dL (3.4-5.0); Alkaline Phosphatase 123 U/L (46-116); Anion Gap 8.4 mmol/L (3-11); BUN 26 mg/dL (7-18); Bilirubin, Total 0.3 mg/dL (0.2-1.0); CO2 28.6 mmol/L (21.0-32.0); CREATININE 1.74 mg/dL (0.55-1.02); Calcium 8.8 mg/dL (8.5-10.1); Chloride 103 mmol/L (98-107); Estimated GFR 30.61 (mL/min/1.73m2); Glucose 239 mg/dL (74-106); Magnesium 1.9 mg/dL (1.8-2.4); Potassium 4.1 mmol/L (3.5-5.1); Sodium 140 mmol/L (136-145); Total Protein 7.2 g/dL (6.4-8.2); Troponin I < 0.05 ng/Ml (<0.06)
--- NOTE | 2019-11-29 21:35 | DI.CT_ITS ---
EXAM: CT HEAD - STROKE PROTOCOL CLINICAL HISTORY: intermittent headache; difficulty ambulating TECHNIQUE: Noncontrast COMPARISON: No exams were available for comparison FINDINGS: No intracranial hemorrhage, mass or acute infarct is seen. There is no evidence of skull fracture. Ventricles are normal in size. There is an old right basal ganglia lacunar infarct. There are patc hy areas of decreased attenuation in the white matter consistent with small vessel disease. IMPRESSION: No acute abnormality.
--- NOTE | 2019-11-29 21:47 | DI.VRAD_ITS ---
PROCEDURE INFORMATION: Exam: CT Head Without Contrast Exam date and time: 11/29/2019 9:24 PM Age: 54 years old Clinical indication: Other: Intermittent headache; Difficulty ambulating; Patient HX: Previous strokes, on eliquis TECHNIQUE: Imaging protocol: Computed tomography of the head without contrast. Radiation optimization: All CT scans at this facility use at least one of these dose optimization techniques: automated exposure control; mA and/or kV adjustment per patient size (includes targeted exams where dose is matched to clinical indication); or iterative reconstruction. Other technique: STROKE PROTOCOL was implemented. COMPARISON: No relevant prior studies available. FINDINGS: Brain: Remote lacunar infarcts are seen in the right basal ganglia and left leonard radiata.There is no acute intracranial hemorrhage, mass effect or midline shift. No large acute territorial infarct identified. There are patchy regions of hypodensity in the periventricular and subcortical white matter, likely on the basis of chronic microvascular ischemic disease. Ventricles: The ventricles and sulci are prominent in size, which is likely related to global cerebral volume loss. Bones/joints: Unremarkable. No acute fracture. Sinuses: Visualized sinuses are unremarkable. No fluid levels. Mastoid air cells: Visualized mastoid air cells are well aerated. Soft tissues: Unremarkable. Other findings: The sella turcica is enlarged with a heterogeneous appearance is contents. IMPRESSION: 1. No acute intracranial hemorrhage, mass effect or midline shift. 2. Enlarged sella turcica with heterogeneous contents, however not well evaluated on this CT. Compare with prior imaging. If there is further clinical concern, an MRI of the pituitary could be obtained for further evaluation. ASSESSMENT: ASPECTS (Mi Stroke Program Early CT Score) is 10. Dictated and Authenticated by: Brisyeda Wills MD. Ordering:JOSE DANIEL Barnes MD
[2019-11-29] MEDS: Lactated Ringers 1,000 ML 125 ML IV (21:48)
--- NOTE | 2019-11-29 22:53 | W.PM.HP.N ---
Date of service: 11/29/19 Time of Service: 22:53 Assessment and Plan Assessment and plan (1) TIA (transient ischemic attack): Start date: 11/29/19 Status: Acute Assessment and plan: This is a 54-year-old lady who had similar unsteady gait in June 2019 when she had signs and symptoms of a stroke. Presently she presents with a headache which appears new and was not mentioned at signout from the ED. She is having some visual disturbances at this may be a migraine equivalent though she has multiple risk for repeated CVA and deserves MRI with abnormal CT scan presently presenting an abnormal sella turcica. By report previous MRI did show lacunar infarcts. She will be observed overnight with neuro checks with repeat MRI and consider neurological consultation if appropriate. This may be done as an outpatient. (2) Headache: Start date: 11/29/19 Status: Acute Assessment and plan: Patient has not reported having migraine headaches before this is atypical with only visual changes associated. To be treated for pain with hydrocodone and Phenergan and could have further work-up as an outpatient for this headache if persisting or recurrent. It is not a typical migraine but has elements of this Type of headache. Is difficult to bring it with the patient and metal buggy operator may be helpful. This is described as possible neuralgia or trigeminal type headache yet not as focal. Qualifiers: Headache type: other vascular headache Qualified Code(s): G44.1 - Vascular headache, not elsewhere classified (3) CVA (cerebral vascular accident): Start date: 11/29/19 Status: Chronic Assessment and plan: Patient has reported previous CVAs an MRI will be helpful for evaluation. She has had a previous MRI MRA in June 2019 with this report been obtained if possible being helpful with this reevaluation. 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 Continue medical therapy. Avoid hypotension. Qualifiers: Hypertension type: essential hypertension Qualified Code(s): I10 - Essential (primary) hypertension (5) Insulin dependent diabetes mellitus: Status: Chronic Assessment and plan: Continue medical therapy but not basal insulin with short acting insulin coverage for meals while hospitalized. (6) Pulmonary embolism: Status: Chronic Assessment and plan: Previous history of IVC and now on Eliquis and aspirin with this to be continued with no intracranial bleed by CT scan with her previous neurological complaints. Qualifiers: Acute cor pulmonale presence: unspecified Chronicity: unspecified Pulmonary embolism type: unspecified Qualified Code(s): I26.99 - Other pulmonary embolism without acute cor pulmonale History of Present Illness History of Present Illness Chief Complaint: Electric headache for 2 days with unsteady gait Narrative: This is a 54-year-old lady who is a mute since who previously lived in [place] but had moved to [place] 2013 after the of her father, recently moved back to [place] with her partner. Her partner is also mute. She presented to the emergency room after a 2-day history of a headache which now is a 9 out of 10 and electrical as a stabbing about her head. She also had unsteadiness followed once out of the other. She had similar symptoms of dizziness in June 2019 which was hospitalized at [facility] with a negative CT but positive MRI for possible lacunar infarcts in the past with nothing appearing acute according to the ED physician.. I did not see this MRI report. The time I saw the patient she was still having some slight visual changes as if squiggly lines were going in front of her but less vertiginous symptoms. She had no nausea. She denies any photophobia. With her previous CVA she had left-sided weakness. This has resolved. Specifically her left hand grasp is now normal and comfortable to the right. Irrigation with patient is difficult and there appear to be no new symptoms the patient have a history of PE status post IVC now on Eliquis and aspirin at the time she is having this episode. Patient also has cardiovascular risk with diabetes, obesity and tobacco use. Review of Systems Narrative: 13 point review of systems otherwise unrevealing or stable. [facility] Medical History Asthma (Inactive) COPD (chronic obstructive pulmonary disease) (Chronic) Deaf-mutism, congenital (Inactive) Hyperlipidemia (Inactive) Hypertension (Chronic) Insulin dependent diabetes mellitus (Chronic) Pulmonary embolism (Chronic) Surgical History Abdominal hysterectomy MAY 03/22/14 [facility] Endometrial Biopsy (03/01/14) [facility] History of thyroidectomy (Chronic) Family History Mother Essential hypertension Father No problems noted. Sister Mental disorder OCD Grandfather Mental disorder ALZ Grandfather No problems noted. Grandmother No problems noted. Grandmother No problems noted. Social History Smoking/Tobacco Use Status: Current every day Tobacco Type: cigarettes Alcohol Intake: never Drug use: Never Substance use type: does not use Do you feel safe at home: Yes Do you feel safe in your relationship?: Yes Meds Home Medications and Allergies Home Medications Medication Instructions Recorded Confirmed Type lisinopril 40 mg PO DAILY #90 tab-cap 09/12/14 11/29/19 History Dexilant 1 cap PO DAILY 11/22/18 11/29/19 History Eliquis 2.5 mg PO BID 11/22/18 11/29/19 History Levemir FlexTouch U-100 Insuln 30 units SUBCUT BID 11/22/18 11/29/19 History aspirin [Aspir-81] 1 tab PO DAILY 11/22/18 11/29/19 History atorvastatin 40 mg PO DAILY 11/22/18 11/29/19 History calcitriol 1 tab PO DAILY 11/22/18 11/29/19 History levothyroxine 175 mcg PO DAILY 11/22/18 11/29/19 History Victoza 2-Roberto 1.8 mg SUBCUT DAILY 09/11/19 11/29/19 History ropinirole [Requip] 0.5 mg PO HS 09/11/19 11/29/19 History metoprolol succinate 50 mg PO DAILY AM 11/29/19 11/29/19 History Allergies Allergy/AdvReac Type Severity Reaction Status Date / Time tramadol Allergy Severe Hives Unverified 11/29/19 20:20 Exam Narrative Exam Narrative: General: Patient appears appropriate for age, obese, alert and oriented x3 but communicating with writing and reviewed. She is in no acute distress. HEENT: Normocephalic with pupils equal and reactive to light symmetrically, extraocular movement intact but slight horizontal nystagmus to far right gaze with slow drift to the left, sclera anicteric. Oral mucosa pink and moist with fair dentition. Tongue protrudes in the midline. External ears normal. Neck: Supple without JVD and no auscultated bruits. Back: Stooped posture with no CVA tenderness. Lungs: Clear to auscultation and percussion. Breasts: Exam deferred. Heart: Regular rate and rhythm with no murmurs or gallops appreciated. Abdomen: Obese contour, soft and nontender to palpation without palpable hepatosplenomegaly. Genitalia/rectal: Exam deferred. Extremities: No pitting edema, cyanosis or clubbing. All joints have fair range of motion. Peripheral pulses are intact. Skin: Pale, warm and dry with no rashes. Neuro: Cranial nerves II through XII appear to be grossly intact except for slight nystagmus as described, no focalizing motor deficits with full strength 5 out of 5, sensory grossly intact with no Babinski's. [id number] is intact and patient has no tremor. Results Imaging Imaging Studies: Exam: CT Head Without Contrast Exam date and time: 11/29/2019 9:24 PM Age: 54 years old Clinical indication: Other: Intermittent headache; Difficulty ambulating; Patient HX: Previous strokes, on eliquis TECHNIQUE: Imaging protocol: Computed tomography of the head without contrast. Radiation optimization: All CT scans at this facility use at least one of these dose optimization techniques: automated exposure control; mA and/or kV adjustment per patient size (includes targeted exams where dose is matched to clinical indication); or iterative reconstruction. Other technique: STROKE PROTOCOL was implemented. COMPARISON: No relevant prior studies available. FINDINGS: Brain: Remote lacunar infarcts are seen in the right basal ganglia and left leonard radiata.There is no acute intracranial hemorrhage, mass effect or midline shift. No large acute territorial infarct identified. There are patchy regions of hypodensity in the periventricular and subcortical white matter, likely on the basis of chronic microvascular ischemic disease. Ventricles: The ventricles and sulci are prominent in size, which is likely related to global cerebral volume loss. Bones/joints: Unremarkable. No acute fracture. Sinuses: Visualized sinuses are unremarkable. No fluid levels. Mastoid air cells: Visualized mastoid air cells are well aerated. Soft tissues: Unremarkable. Other findings: The sella turcica is enlarged with a heterogeneous appearance is contents. IMPRESSION: 1. No acute intracranial hemorrhage, mass effect or midline shift. 2. Enlarged sella turcica with heterogeneous contents, however not well evaluated on this CT. Compare with prior imaging. If there is further clinical concern, an MRI of the pituitary could be obtained for further evaluation. ASSESSMENT: ASPECTS (Mi Stroke Program Early CT Score) is 10. Dictated and Authenticated by: Briseyda Wills MD. Labs Result diagrams: 11/29/19 20:40 11/29/19 20:40 Labs: Laboratory Results - last 24 hr 11/29/19 11/29/19 11/29/19 20:40 20:40 20:40 WBC 10.26 RBC 5.31 H Hgb 15.1 Hct 45.2 MCV 85.1 MCH 28.4 MCHC 33.4 RDW 13.7 Plt Count 271 MPV 9.9 Immature Gran % 0.3 Neutrophils % 74.0 Lymphocytes % 19.5 Monocytes % 4.1 Eosinophils % 1.9 Basophils % 0.2 Absolute Neutrophils 7.59 H Absolute Lymphocytes 2.00 Absolute Monocytes 0.42 Absolute Eosinophils 0.20 Absolute Basophils 0.02 PT 10.0 INR 1.0 APTT 27.2 Sodium 140 Potassium 4.1 Chloride 103 Carbon Dioxide 28.6 Anion Gap 8.4 BUN 26 H Creatinine 1.74 H Estimated GFR/1.73 m2 30.61 Glucose 239 H Calcium 8.8 Magnesium 1.9 Total Bilirubin 0.3 AST 15 ALT 21 Alkaline Phosphatase 123 H Troponin I < 0.05 Total Protein 7.2 Albumin 3.5 Last Vital Signs Temp 36.5 C 11/29/19 22:16 Pulse 85 11/29/19 22:16 Resp 17 11/29/19 22:16 BP 140/60 11/29/19 22:16 Pulse Ox 94 L 11/29/19 22:16
[2019-11-30] VITALS (19 sets, daily range): BP systolic 117–142; BP diastolic 48–77; PULSE 70–88; RESP 12–21; TEMP 36.4–36.7; O2SAT 89–94
[2019-11-30] MEDS: HYDROcodone 10/Acetaminophen 325 TAB PO ×4 (03:34→19:41)
[2019-11-30] MEDS: Promethazine 25 MG TAB PO (03:34)
[2019-11-30] MEDS: Lactated Ringers 1,000 ML 125 ML IV ×2 (06:12→21:22)
[2019-11-30] MEDS: Levothyroxine 175 MCG TAB PO (06:21)
[2019-11-30 07:08] LABS: HCT 42.1 % (36.0-46.0); Mean Corp. HGB Concentration 33.3 g/dL (32.0-36.0); Mean Corpuscular Hemoglobin 28.5 pg (27.0-33.0); Mean Corpuscular Volume 85.7 fL (80-95); Mean Platelet Volume 10.1 fL (8.0-11.0); Platelet Count 241 x1000/uL (130-400); RBC 4.91 m/cumm (4.00-5.20); RBC Distribution Width 13.6 % (11.7-14.6); White Blood Cell Count 9.02 k/cumm (4.4-10.8)
[2019-11-30 07:26] LABS: ALT 22 U/L (14-59); AST 14 U/L (15-37); Alkaline Phosphatase 106 U/L (46-116); Anion Gap 7.6 mmol/L (3-11); BUN 22 mg/dL (7-18); Bilirubin, Total 0.3 mg/dL (0.2-1.0); CO2 27.4 mmol/L (21.0-32.0); CREATININE 1.23 mg/dL (0.55-1.02); Calcium 8.4 mg/dL (8.5-10.1); Chloride 106 mmol/L (98-107); Estimated GFR 45.67 (mL/min/1.73m2); Glucose 167 mg/dL (74-106); Potassium 3.9 mmol/L (3.5-5.1); Sodium 141 mmol/L (136-145); TSH (W/Ref FT4) 1.48 uIU/mL (0.36-3.74); Total Protein 6.3 g/dL (6.4-8.2)
--- NOTE | 2019-11-30 08:00 | DI.MRI_ITS ---
EXAM: MR BRAIN PITUITARY WO/W CLINICAL HISTORY: TIA. TECHNIQUE: Multiplanar multisequence MRI was performed. Exam is somewhat limited by patient motion. COMPARISON: CT HEAD - STROKE PROTOCOL from 11/29/2019 FINDINGS: There is enlargement of the sella by fluid. There is no evidence of a mass. The pituitary gland is compressed inferiorly. The infundibulum is midline. There is an old right basal ganglia lacunar inf arct. There are patchy areas of decreased attenuation in the white matter consistent with sequela of chronic microvascular ischemia. There is an additional small old lacunar infarct adjacent to the po sterior horn of the left lateral ventricle. There is no evidence of acute hemorrhage or mass. The v ascular flow voids appear intact. The orbits, sinuses and mastoid air cells are unremarkable. IMPRESSION: 1. Partial empty sella with sellar expansion. No evidence of mass. 2. Old lacunar infarcts and white matter changes of small vessel disease. DATA REPOSITORY:
[2019-11-30] MEDS: Calcitriol 0.25 MCG CAP PO (08:31)
[2019-11-30] MEDS: Atorvastatin 40 MG TAB PO (08:31)
[2019-11-30] MEDS: Dexlansoprazole 30 MG CAP PO (08:31)
[2019-11-30] MEDS: Metoprolol CR 50 MG TABCR PO (08:32)
[2019-11-30] MEDS: Aspirin E.C. 81 MG TABEC PO (08:32)
[2019-11-30] MEDS: Insulin Aspart 300 UNITS/3 ML PEN SC ×3 (08:32→22:30)
[2019-11-30] MEDS: Lisinopril 20 MG TAB 40 MG PO (08:32)
[2019-11-30] MEDS: Apixaban 2.5 MG TAB PO ×2 (08:32→19:42)
--- NOTE | 2019-11-30 09:06 | INITIAL_ITS ---
- If Service Date Differs Date of service: 11/30/19 Time of Service: 09:06 Care Management Initial Assess REASON FOR HOSPITALIZATION:: TIA PAST MEDICAL HISTORY/PAST SURGICAL HISTORY:: Medical History . Asthma (Inactive). COPD (chronic obstructive pulmonary disease) (Chronic). Deaf-mutism, congenital (Inactive). Hyperlipidemia (Inactive). Hypertension (Chronic). Insulin dependent diabetes mellitus (Chronic). Pulmonary embolism (Chronic). Surgical History . Abdominal hysterectomy. [facility] 03/22/14 [facility]. Endometrial Biopsy (03/01/14). [facility] History of thyroidectomy (Chronic) PREVIOUS FUNCTIONAL STATUS/SOCIAL/FAMILY SUPPORTS:: Tyra lives in a single family house with her significant other Armaan and 2 nieces. One of the nieces ow ns the house. Tyra recently relocated from [place] where she has lived most of her life. She is independent at baseline and receives no services in the community. Tyra is deaf and mute but communicates very well in writing. CURRENT FUNCTIONAL STATUS:: Tyra was sitting up in bed when CM met with her. She was polite and open to communicating with CM. Tyra indicated that she is going to have another test today (MRI) to see if a cause for her symptoms can be identified. She does not have advanced directives and is not interested in completing them at this time. ADVANCE DIRECTIVES:: None on file Has patient been provided with information about the portal?: Yes Did the patient sign up for the portal?: No CODE STATUS:: Full Code INSURANCE COVERAGE / FINANCIAL ISSUES:: Medicare CURRENT HOME/COMMUNITY SERVICES/EQUIPMENT:: none identified PRIMARY CARE PHYSICIAN:: Aviva Reece POTENTIAL DISCHARGE NEEDS:: Follow up with PCP and discharge plan of care PATIENT/FAMILY EDUCATION NEEDS:: Discharge plan, limitations, follow plan and Ask Me Three TRANSPORTATION:: via private vehicle with partner PLAN:: Tyra will likely be discharged home with no new services. She will follow up with her PCP and discharge plan of care. She will transport via private vehicle with family. CM will continue to support patient, family and discharge planning needs.
--- NOTE | 2019-11-30 09:27 | IN_ITS ---
Date of service: 11/30/19 Time of Service: 09:00 PT Notes Visit Reasons: TIA, PREVIOUS CVA, HTN NIDDM Inpatient Physical Therapy Evaluation Date: 11/30/2019 Referring Doctor: Isai Anthony PT Orders: PT CONSULT: Limited ability to ambulate; TIA with unsteady gait Precautions: fall, standard Patient Profile/Admitting Diagnosis: Patient admitted 11/29/2019 due to unsteady gait. Diagnosed with TIA and admitted for observation. PMHX: Asthma (Inactive) COPD (chronic obstructive pulmonary disease) (Chronic) Deaf-mutism, congenital (Inactive) Hyperlipidemia (Inactive) Hypertension (Chronic) Insulin dependent diabetes mellitus (Chronic) Pulmonary embolism (Chronic) Social History/Home Situation: Patient lives in a multi-level home with 3 IRA with rail. She typically ambulates independently. She states that she has a walker, although it is currently in [place]. Equipment Owned/DME: Owns a walker, although does not currently have access to it. Unclear whether this was issued directly to patient in the past. Subjective: All communication is via white board, as patient is unable to verbally communicate. Her primary complaint is of 8/10 headache. She is agreeable to getting up to the chair. Objective: General Observation: Resting in bed with telemetry in place, IV in RUE, pulse oximeter on third digit of left hand. Mental Status: A and O x3. Pain: 8/10 headache Vital Signs: Resting SaO2 on room air is 96%. With short distance ambulation, patient desaturates to 80%. ROM: Right Upper Extremity: WFL Left Upper Extremity: WFL Right Lower Extremity: WFL Left Lower Extremity: WFL Strength: Right Upper Extremity: Shoulder flexion 3/5 or greater. Biceps and triceps 3/5 or greater. Retail Shift Supervisor is strong and equal. Left Upper Extremity: Shoulder flexion 3/5 or greater. Biceps and triceps 3/5 or greater. Retail Shift Supervisor is strong and equal. Right Lower Extremity: Hip flexion 4+/5. Quads 4+/5. Hamstrings 4/5. Ankle dorsiflexion 5/5. Left Lower Extremity: Hip flexion 4+/5. Quads 4+/5. Hamstrings 4/5. Ankle dorsiflexion 5/5. Sensation: Sensation is intact to light touch through the plantar aspects of both feet Bed Mobility/Transfers: Supine?sit: Supervision Sit?supine: Supervision Sit?stand: CGA, with complaints of increasing dizziness Stand?sit: CGA Bed?chair: FW W, CGA Gait: Patient ambulates 4 feet with FW W and CGA. She requires max assist for management of lines. During ambulation, she desaturates to 80%, and complains of ongoing dizziness. She is able to sit up to the chair for 3 minutes, after which she requests assistance back to bed. Balance: Static Sitting: Normal Dynamic Sitting: Good Static Standing: Good Dynamic Standing: Fair Special Tests: Romberg test is positive with right posterior lateral loss of balance. Patient is able to demonstrate small base of support standing with eyes open, unsupported x10 seconds Coordination is intact with rapid alternating movements of the upper extremities. Mildly diminished with rapid alternating movements of the lower extremities. Fine motor is intact with thumb to digit tapping Mobility Limitations Standardized Measure [facility]-PAC 6 clicks Basic Mobility Inpatient Short Form: Raw Score: 19 CMS Score: 42% Informed Consent/Education: Patient instructed in purpose of PT consult and plan of care. Treatment: Patient was instructed in a seated exercise program, with monitoring of vitals throughout. She tolerates minimal activity, requesting assistance with transition back to bed due to fatigue and headache. See flow sheet for full program. Assessment: Patient is a 54 year old female referred to physical therapy services with the diagnosis of limited ability to ambulate, with medical diagnosis of TIA with unsteady gait. Patient presents with clinical signs and symptoms consistent with diagnosis, complicated by significant limitations in activity tolerance with oxygen desaturation with even short distance ambulation. She currently demonstrates the following impairment level findings: 1. Decreased activity tolerance, with oxygen desaturation with 4 feet of ambulation 2. Decreased lower extremity strength 3. Persistent headache 4. Decreased balance Impairments are contributing to the following functional limitations: A 1. Unable to tolerate household distance ambulation 2. [place] on external support via wheeled walker for safe short distance ambulation 3. Decreased safety with sit to stand transfers 4. Unable to safely manage stairs due to severe limitations in activity tolerance Patient is assessed as a Moderate 16340 complexity based on the following: History: 54-year-old female presenting with unsteady gait due to TIA. Complicating factors include history of COPD, IDDM, hypertension, and history of PE with chronic anticoagulation. Examination: Functional limitations as noted above Presentation: Evolving Decision Making: Moderate complexity Goals: Goals X1 week 1. Supine-Sit: Independent 2. Sit-Supine: Independent 3. Sit-Stand: Supervision 4. Stand-Sit: Supervision 5. Bed-Chair: Supervision with least restrictive device 6. Chair-Bed: Supervision with least restrictive device 7. Gait: Supervision x50 feet with least restrictive device 8. Stairs: CGA x3 stairs with bilateral rails Plan of Care/Treatment Plan: 1-2x/day, 7 days/week x 1 week. Plan of care has been reviewed with the HARP ACTION ASSEMBLER providing the service under Physical Therapy direction. Initiate Physical Therapy intervention for strengthening, bed mobility, transfers, gait, stairs, balance training, use of assistive device. DISCHARGE RECOMMENDATIONS: We will continue monitoring for need for assistive device as patient progresses with PT intervention TREATMENT CODE/TIME: 9:00?925 ([id number])
--- NOTE | 2019-11-30 10:30 | PGE_ITS ---
Date of Service Date of service: 11/30/19 Time of Service: 10:30 Assessment and Plan Assessment and plan (1) Vertigo: Status: Acute Assessment and plan: Unclear whether this is central in nature such as from recurrent posterior circulation CVA or due to a labyrinthitis or just benign paroxysmal positional vertigo. Because her symptoms are similar to when she had her CVA we will get a MRI of the brain looking for any new defects. If we find new strokes then will need to complete further work-up including repeat TTE with bubble study. Otherwise if there is no new MRI findings we will have physical therapy perform vestibular exercises to see if we can abolish her symptoms. (2) Headache: Status: Acute Assessment and plan: Headaches seem to be more predominantly left-sided although she did have some frontal headaches. She describes them as sharp electrical jolts. Sounds like it may be vascular in nature. Because of her elevated creatinine and being on chronic blood thinner she is not candidate for NSAIDs. Qualifiers: Headache type: other vascular headache Qualified Code(s): G44.1 - Vascular headache, not elsewhere classified (3) Unsteady gait: Status: Acute Assessment and plan: Physical therapy has been consulted to evaluate and treat however her gait problem is probably related to her vertigo. (4) Insulin dependent diabetes mellitus: Status: Chronic Assessment and plan: Monitor blood sugars before meals and at bedtime and cover with her usual dose of Levemir and sliding scale. (5) Hypertension: Status: Chronic Assessment and plan: Continue her home medications of metoprolol succinate and lisinopril. Qualifiers: Hypertension type: essential hypertension Qualified Code(s): I10 - Essential (primary) hypertension Subjective Subjective Interval history since last seen: [id number] deaf female originally from [facility] has a prior medical history of hypertension, diabetes mellitus type 2 requiring insulin, previous pulmonary embolism for which she is chronically on Eliquis, coronary artery disease for which she has had coronary bypass surgery who is now living in [place] with her boyfriend who is also deaf. She moved up here in [place] to be closer to her niece. Patient presents emergency department last night with acute dizziness vertiginous in nature not associated with any dyspnea or chest pain but new headaches. She states every time she moves around or tries to sit up or walk she gets severe dizziness. She said she presented with similar symptoms when she was found to have bilateral lacunar strokes. This was worked up in [facility] and include a CT scan of her head with subsequent MRI and MRA of the brain and MRA of the cervical vessels as well as TTE with bubble study and carotid duplex scans. Because of some acute renal insufficiency a CTA of the head cannot be performed last night however a noncontrast CT scan of the head was performed and showed no hemorrhage. Old lacunar strokes were seen in the right basal ganglia left c abisai radiata the patient has empty sella syndrome. Patient is admitted for treatment of her headaches as well as evaluation of her vertigo. She is scheduled for an MRI scan of the brain this morning. Nursing staff and physical therapy report that she has had transient drop in her oxygen levels into the 80s although her primary nurse feels that the pulse oximetry was not reading correctly. Patient has known COPD but does not require oxygen at home and clinically she does not feel short of breath. SPO2 during my interview with her remained in the mid 90s. Exam Narrative Exam Narrative: Middle-age deaf female who was very pleasant and cooperative in 3 use of a white board we were able to write questions and answers [id number]. She seems to be alert and oriented to person place time circumstance and is able to give a complete history to me. Neck is supple nontender no JVD normal carotid pulses no bruits. Lungs are clear to auscultation. Heart is regular rate and rhythm without audible murmur rub or gallop. Abdomen is obese soft and nontender. Legs are without peripheral cyanosis or edema she has normal pedal pulses. Neurologic exam speech is impaired secondary to her deafness however she is intelligible. She has no facial asymmetry no focal paresthesias or paraparesis. Objective Objective Clinical Data: Abnormal lab results 11/29/19 11/29/19 11/30/19 Range/Units 20:40 20:40 06:00 RBC 5.31 H (4.00-5.20) m/cumm Absolute Neutrophils 7.59 H (1.2-6.7) k/cumm BUN 26 H 22 H (7-18) mg/dL Creatinine 1.74 H 1.23 H D (0.55-1.02) mg/dL Glucose 239 H 167 H (74-106) mg/dL Calcium 8.4 L (8.5-10.1) mg/dL AST 14 L (15-37) U/L Alkaline Phosphatase 123 H (46-116) U/L Total Protein 6.3 L (6.4-8.2) g/dL Albumin 3.0 L (3.4-5.0) g/dL Vital Signs Temperature 36.6 C 11/30/19 08:35 Temperature Source Temporal Artery Scan 11/30/19 08:35 Pulse 72 11/30/19 08:00 Pulse 74 11/30/19 10:00 Respiratory Rate 15 11/30/19 10:00 Respiratory Effort Non-Labored 11/30/19 08:35 Respiratory Depth Normal 11/30/19 08:35 Respiratory Pattern Normal 11/30/19 08:35 Blood Pressure 123/61 11/30/19 08:00 Blood Pressure Mean 76 11/30/19 08:00 Blood Pressure Position Sitting 11/29/19 20:15 Pulse Oximetry 93 L 11/30/19 10:00 Oxygen Delivery Method Room Air 11/30/19 00:30 Oxygen Flow Rate 0 11/30/19 00:30 Pain Level 8 11/30/19 08:46 Intake & Output 11/29/19 11/29/19 11/30/19 11:59 23:59 11:59 Intake Total 1500 / 1500 Output Total 700 / 700 Balance 800 / 800 Weight 107.3 kg 106.4 kg Intake: IV 1000 / 1000 Oral 500 / 500 Output: Urine 700 / 700 Other: Urine Color Straw Urine Appearance Clear Urine Odor None Voiding Methods Bedside Commode Laboratory Results WBC 9.02 k/cumm (4.4-10.8) 11/30/19 06:00 RBC 4.91 m/cumm (4.00-5.20) 11/30/19 06:00 Hgb 14.0 g/dL (12.0-15.5) 11/30/19 06:00 Hct 42.1 % (36.0-46.0) 11/30/19 06:00 MCV 85.7 fL (80-95) 11/30/19 06:00 MCH 28.5 pg (27.0-33.0) 11/30/19 06:00 MCHC 33.3 g/dL (32.0-36.0) 11/30/19 06:00 RDW 13.6 % (11.7-14.6) 11/30/19 06:00 Plt Count 241 x1000/uL (130-400) 11/30/19 06:00 MPV 10.1 fL (8.0-11.0) 11/30/19 06:00 Immature Gran % 0.3 % 11/29/19 20:40 Neutrophils % 74.0 11/29/19 20:40 Lymphocytes % 19.5 11/29/19 20:40 Monocytes % 4.1 11/29/19 20:40 Eosinophils % 1.9 11/29/19 20:40 Basophils % 0.2 11/29/19 20:40 Absolute Neutrophils 7.59 k/cumm (1.2-6.7) H 11/29/19 20:40 Absolute Lymphocytes 2.00 k/cumm (1.2-3.4) 11/29/19 20:40 Absolute Monocytes 0.42 k/cumm (0.11-0.7) 11/29/19 20:40 Absolute Eosinophils 0.20 k/cumm (0.0-0.7) 11/29/19 20:40 Absolute Basophils 0.02 k/cumm (0.0-0.2) 11/29/19 20:40 PT Cancelled 11/29/19 23:06 INR Cancelled 11/29/19 23:06 APTT 27.2 sec (21.0-31.4) 11/29/19 20:40 Sodium 141 mmol/L (136-145) 11/30/19 06:00 Potassium 3.9 mmol/L (3.5-5.1) 11/30/19 06:00 Chloride 106 mmol/L (98-107) 11/30/19 06:00 Carbon Dioxide 27.4 mmol/L (21.0-32.0) 11/30/19 06:00 Anion Gap 7.6 mmol/L (3-11) 11/30/19 06:00 BUN 22 mg/dL (7-18) H 11/30/19 06:00 Creatinine 1.23 mg/dL (0.55-1.02) H D 11/30/19 06:00 Estimated GFR/1.73 m2 45.67 (mL/min/1.73m2) 11/30/19 06:00 Glucose 167 mg/dL (74-106) H 11/30/19 06:00 Calcium 8.4 mg/dL (8.5-10.1) L 11/30/19 06:00 Magnesium 1.9 mg/dL (1.8-2.4) 11/29/19 20:40 Total Bilirubin 0.3 mg/dL (0.2-1.0) 11/30/19 06:00 AST 14 U/L (15-37) L 11/30/19 06:00 ALT 22 U/L (14-59) 11/30/19 06:00 Alkaline Phosphatase 106 U/L (46-116) 11/30/19 06:00 Troponin I < 0.05 ng/Ml (<0.06) 11/29/19 20:40 Total Protein 6.3 g/dL (6.4-8.2) L 11/30/19 06:00 Albumin 3.0 g/dL (3.4-5.0) L 11/30/19 06:00 TSH 1.48 uIU/mL (0.36-3.74) 11/30/19 06:00
--- NOTE | 2019-11-30 10:33 | DI.MRI_ITS ---
EXAM: MR ANGIO BRAIN WO CLINICAL HISTORY: Headache, dizziness, history of CVA. TECHNIQUE: A 3D [id number] study was performed without contrast. COMPARISON: CT HEAD - STROKE PROTOCOL from 11/29/2019 FINDINGS: There is no evidence occlusion, dissection or significant stenosis. No aneurysm is seen. IMPRESSION: Negative CTA of the brain. DATA REPOSITORY:
[2019-11-30] MEDS: diazePAM 5 MG TAB PO (11:31)
--- NOTE | 2019-11-30 12:09 | W.NUTCONSULT ---
Date of service: 11/30/19 Time of Service: 12:09 Nutritional Consult ASSESSMENT: 54 year old female admitted with headache/vertigo with history of CVA. PMH: IDDM, deaf/mute. Following Diabetic Diet with adequate intake. BMI indicates class 2 obesity. Blood sugars elevated , DM consult received, CDE to follow up. Does not appear at nutritional risk at this time. MONITORING AND EVALUATION: po intake, weight, labs Time Spent in Nutritional Counseling and Treatment: 0 time spent face to face
[2019-11-30] MEDS: Normal Saline Flush 10 ML SYR IVP ×2 (12:51→21:23)
[2019-11-30] MEDS: Gadoterate meglumine 20 ML VIAL IVP (12:52)
--- NOTE | 2019-11-30 15:26 | PT.INTREAT ---
Date of service: 11/30/19 Time of Service: 15:26 PT Notes Visit Reasons: TIA, PREVIOUS CVA, HTN NIDDM 11/30/2019 SUBJECTIVE: Pt communicates via white board. She indicates that she is less dizzy lying in her bed. She notes increase in dizziness upon standing and walking and she describes this as the room spinning. OBJECTIVE: Pt agreeable to PT treatment. She is being transferred from ICU to Med/SURG floor. TRANSFERS Supine to sit: S Sit to supine: S Sit to stand: CGA Stand to sit: CGA GAIT Device: FWW Weight bearing: Full Assist: CGA Distance: 8'x2 Deviation: Pt is dizzy. VITALS: 89-90% on RA ASSESSMENT: We limit pt's activity today and gait distance due to her dizziness. She is utilizing a walker also because of her dizziness but most likely she will not require a walker once her symptoms resolve. We will continue to work with her and assess her function. PLAN: Continue current POC. Treatment time: 20' [id number] Ekaterina Thompson, YAHIR
--- NOTE | 2019-11-30 17:18 | NUR.NOTE ---
Nursing Note: Patient transferred from unit to floor around 1415. Patient alert and oriented x 3. HR reg. Lungs clear and diminished. Normal bowel sounds. VSS. See worklist. Positive pedal and radial pulses. Reports headache pain /. Deaf and mute, communicates with white board or highway design engineer. Eating lunch at this time. Will continue to monitor.
[2019-11-30] MEDS: Meclizine 12.5 MG TAB PO (22:30)
[2019-11-30] MEDS: rOPINIRole 0.5 MG TAB PO (22:30)
[2019-12-01] MEDS: HYDROcodone 5/Acetaminophen 325 TAB PO ×3 (00:08→15:00)
[2019-12-01 00:18] VITALS: BP 132/71; PULSE 74; RESP 18; TEMP 36.8; O2SAT 92
[2019-12-01] MEDS: Lactated Ringers 1,000 ML 125 ML IV (04:35)
[2019-12-01] MEDS: Levothyroxine 175 MCG TAB PO (06:45)
[2019-12-01] MEDS: Acetaminophen 325 MG TAB 650 MG PO ×2 (06:56→15:00)
[2019-12-01 08:00] VITALS: BP 130/77; PULSE 72; RESP 19; TEMP 36.6; O2SAT 93
[2019-12-01] MEDS: Apixaban 2.5 MG TAB PO (08:50)
[2019-12-01] MEDS: Normal Saline Flush 10 ML SYR IVP (08:50)
[2019-12-01] MEDS: Dexlansoprazole 30 MG CAP PO (08:50)
[2019-12-01] MEDS: Aspirin E.C. 81 MG TABEC PO (08:50)
[2019-12-01] MEDS: Meclizine 12.5 MG TAB PO ×2 (08:50→14:59)
[2019-12-01] MEDS: Atorvastatin 40 MG TAB PO (08:50)
[2019-12-01] MEDS: Calcitriol 0.25 MCG CAP PO (08:50)
[2019-12-01] MEDS: Lisinopril 20 MG TAB 40 MG PO (08:50)
[2019-12-01] MEDS: Insulin Aspart 300 UNITS/3 ML PEN SC ×3 (08:51→16:47)
[2019-12-01] MEDS: Metoprolol CR 50 MG TABCR PO (08:51)
[2019-12-01 10:44] VITALS: PULSE 70
--- NOTE | 2019-12-01 13:04 | PTTR_ITS ---
Date of service: 12/01/19 Time of Service: 12:20 PT Notes Visit Reasons: TIA, PREVIOUS CVA, HTN NIDDM Inpatient Physical Therapy Treatment Note [facility] Date: 12/01/19 PRECAUTIONS:fall, standard SUBJECTIVE: Tyra is accompanied by an medical interpreter during our session. She relays that she has dizziness when she sits up too quickly or rolls over. She denies room spinning sensation, but states that her head feels full. She states that her symptoms typically last about 15 minutes. OBJECTIVE: PAIN: denies BED MOBILITY/TRANSFERS Rolling L/R: independent Supine-sit: independent Sit-supine: independent Sit-stand: Supervision Stand-sit: supervision GAIT Patient ambulates with FW W and CGA x60 feet. At that point, she is able to eliminate use of FW W, and ambulate an additional 60 feet with CGA?S. She demonstrates mild ataxia, which she reports is her baseline. VITALS: Orthostatics as follows: Supine: 134/70, heart rate 87 Seated: 114/60, heart rate 87 Standin/71 heart rate 87 Neuromuscular reeducation ([id number]): Cervical range of motion is non-symptom provoking, with the exception of cervical flexion which elicits symptoms of vertigo. [place]-Hallpike testing shows mild symptom reproduction without nystagmus to the left, with symptoms lasting less than 10 seconds. [place]-Hallpike to the right again shows no nystagmus, although with patient reporting increased symptoms of dizziness lasting approximately 15 seconds. She was assisted through the Hudson maneuver x3 with 90?second holds in each position. She has diminishing symptoms on each repetition, and is asymptomatic at end of session. She is able to ambulate as noted above without symptoms of dizziness post- treatment. ASSESSMENT: Patient tolerated introduction of Hudson maneuver well, with excellent resolution of symptoms posttreatment. She was able to demonstrate safe ambulation without assistive device, and reports improved symptom management. She has had PT intervention in the past to address symptoms of vertigo, and plans to resume outpatient PT for management of both her back pain and her underlying balance deficits. She is demonstrating dramatically improved mobility post treatment, and will be safe for transition back home once medically cleared. PLAN: Tyra will benefit from outpatient PT intervention to address her symptoms of vertigo and ataxia. She demonstrates sufficient safety from a PT standpoint to allow for safe return home, with recommendation to resume outpatient services to address her chronic issues. TREATMENT CODE/TIME: [id number] (12:20-1:05) Rowan Olivo, PT, DPT [facility] Total Treatment Time: []
--- NOTE | 2019-12-01 13:49 | DSE_ITS ---
Date of service: 12/01/19 Time of Service: 13:49 DS: Diagnosis Discharge Diagnosis (1) Vertigo: Status: Chronic Asessment and Plan: Vertigo is markedly improved. It suspected that this is a recurrent problem secondary to her previous CVAs. No new CVAs were seen on her MRI and no occlusive disease was seen on her MRA. Patient can take meclizine 12.5 mg p.o. 3 times daily as needed dizziness. [facility] is [facility] vestibular exercises. Patient was seen twice by physical therapy while an inpatient and did well with the Hudson maneuver. See PTs note from today for details. (2) Headache: Status: Resolved Asessment and Plan: Headaches are most likely muscle contraction headaches exacerbated by her acute vertigo. While she was treated with oxycodone as an inpatient is not appropriate for her to continue on oxycodone as a maintenance medication. Therefore I am not going to prescribe any narcotic analgesics. I recommend as needed use of muscle relaxants and Tylenol prn NSAIDs. (3) Unsteady gait: Status: Chronic Asessment and Plan: Patient was observed to ambulate independently without a front wheel walker. Recommend she continue with physical therapy for gait and balance training as needed. Hopefully with resolution of her vertigo she should be able to continue with independent ambulation. (4) Insulin dependent diabetes mellitus: Status: Chronic Asessment and Plan: Blood glucose was labile during hospitalization. Generally she ran in the low to mid 200s. This recommend that she receive further outpatient adjustment of her insulin dose to improve her glycemic control which should help decrease her risk for future vascular events. (5) Hypertension: Status: Chronic Asessment and Plan: Her blood pressure remained stable throughout her hospital course. She had no orthostatic blood pressure changes. This was checked by physical therapy at the time they performed her vestibular exercises and Hallpike [place] maneuver. No changes were made in her home blood pressure medications. Discharge Plan Disposition Patient Disposition: HOME Condition: Good Discharge Details Chief Complaint: CVA/TIA Clinical Impression: Unsteady gait Reason For Visit: dizziness, headache Admit Date/Time: 11/29/19 23:02 Admit Provider: Isai Anthony Attending Provider: Isai Anthony Primary Care Provider: Aviva Reece ED Provider: See,Cameron J Hospital Course Hospital Course: 54-year-old deaf female originally from [facility] has a prior medical history of hypertension, diabetes mellitus type 2 requiring insulin, previous pulmonary embolism for which she is chronically on Eliquis, coronary artery disease for which she has had coronary bypass surgery who is now living in [place] with her boyfriend who is also deaf. She moved up here in [place] to be closer to her niece. Patient presents emergency department last night with acute dizziness vertiginous in nature not associated with any dyspnea or chest pain but new headaches. She states every time she moves around or tries to sit up or walk she gets severe dizziness. She said she presented with similar symptoms when she was found to have bilateral lacunar strokes. This was worked up in [facility] and include a CT scan of her head with subsequent MRI and MRA of the brain and MRA of the cervical vessels as well as TTE with bubble study and carotid duplex scans. Because of some acute renal insufficiency a CTA of the head cannot be performed last night however a noncontrast CT scan of the head was performed and showed no hemorrhage. Old lacunar strokes were seen in the right basal ganglia left leonard radiata the patient has empty sella syndrome. Patient is admitted for treatment of her headaches as well as evaluation of her vertigo. She is scheduled for an MRI scan of the brain this morning. Nursing staff and physical therapy report that she has had transient drop in her oxygen levels into the 80s although her primary nurse feels that the pulse oximetry was not reading correctly. Patient has known COPD but does not require oxygen at home and clinically she does not feel short of breath. SPO2 during my interview with her remained in the mid 90s. Patient's headaches are treated with oxycodone. Her dizziness is treated with meclizine and physical therapy was consulted to perform Hudson's maneuver. Physical therapy was able to reproduce her dizziness with the [place]-Hallpike testing and although no nystagmus was seen it did provoke dizziness. Patient was introduced to Hudson maneuver which produced excellent resolution of her symptoms posttreatment. It was felt that she would benefit from outpatient PT intervention to address her symptoms of vertigo and ataxia. Patient's gait and balance was observed. She ambulated with a front wheel walker and CGA x60 feet. At that point she was able to limit the use of front wheel walker and she ambulated additional 60 feet with CGA demonstrating mild ataxia which is her baseline. During her hospital course an MRI and MRA were performed on November 30, 2019. MRI showed partial empty sella with sellar expansion with no evidence of mass as well as old lacunar infarcts and white matter changes of small vessel disease. In particular is a small old lacunar infarct adjacent to the posterior horn of the left lateral ventricle and old right basal ganglier infarct. These are similar to those reported from her study in [facility] in June 2019. Patient will be discharged home to follow-up with her primary care provider as well as to follow-up as an outpatient physical therapy patient to continue with her vestibular exercises. Home Meds and New Rx's Prescriptions: New meclizine 12.5 mg tablet 12.5 mg PO TID PRN (Reason: dizziness) Qty: 30 RF: 0 Continued lisinopril 2.5 MG tablet 40 mg PO DAILY Qty: 90 RF: 3 atorvastatin 40 mg Tablet 40 mg PO DAILY RF: 0 aspirin [Aspir-81] 81 mg Tablet,Delayed Release (Dr/Ec) 1 tab PO DAILY RF: 0 levothyroxine 25 mcg Tablet 175 mcg PO DAILY RF: 0 calcitriol 0.25 mcg Capsule 1 tab PO DAILY RF: 0 Levemir FlexTouch U-100 Insuln 100 unit/mL (3 mL) Insulin Pen 30 units subcut BID RF: 0 Dexilant 60 mg Capsule,Biphase Delayed Releas 1 cap PO DAILY RF: 0 Eliquis 2.5 mg Tablet 2.5 mg PO BID RF: 0 Victoza 2-Roberto 0.6 mg/0.1 mL (18 mg/3 mL) Pen Injector 1.8 mg SUBCUT DAILY RF: 0 ropinirole [Requip] 0.25 mg Tablet 0.5 mg PO HS RF: 0 metoprolol succinate 50 mg Tablet Extended Release 24 Hr 50 mg PO DAILY AM RF: 0 Discharge Instructions Referrals: Aviva Reece [Primary Care Provider] - Jov[facility], PT [PHYSICAL THERAPIST] - Activity:: Activity as Tolerated Equipment/Supplies:: No Equipment Needed Diet:: Carb Counting Discharge Orders Discharge Orders: Discharge Order (Routine); Ordered 12/01/19 Ordered By: Ba Hope DS: Summary Status at Discharge Functional status at discharge: independent ambulation Overall status at discharge: patient is progressing back to baseline Mental Status: mental status grossly normal Speech and Movement: speech and movement normal Mood: congruent mood Affect: normal affect Exam Narrative Exam Narrative: Pleasant female who is alert and oriented person place time circumstance. Communication with her today was obtained through the use of an material engineer. Her headaches are gone. Her dizziness is markedly improved. I observed her ambulating in the room to the bathroom independently. She had no unsteady gait. I also observed physical therapy performing her Hallpike [place] maneuver which precipitated her dizziness. Psych Mental Status: mental status grossly normal Speech and Movement: speech and movement normal Mood: congruent mood Affect: normal affect DS: Data Vitals/I&O Vitals and I&O: Vital Signs Temperature 36.6 C 12/01/19 08:00 Temperature Source Tympanic 12/01/19 08:00 Pulse 70 12/01/19 10:44 Pulse Rhythm Regular 12/01/19 00:08 Pulse 74 11/30/19 10:00 Respiratory Rate 19 12/01/19 08:00 Respiratory Effort 12/01/19 00:08 Respiratory Depth Normal 12/01/19 00:08 Respiratory Pattern Normal 12/01/19 00:08 Blood Pressure 130/77 12/01/19 08:00 Blood Pressure Mean 82 11/30/19 14:01 Blood Pressure Position Sitting 11/29/19 20:15 Pulse Oximetry 93 L 12/01/19 08:00 Oxygen Delivery Method Room Air 12/01/19 08:00 Oxygen Flow Rate 0 12/01/19 08:00 Pain Level 6 12/01/19 10:58 Intake & Output 11/30/19 12/01/19 12/01/19 23:59 11:59 23:59 Intake Total 2240 / 3740 1632.083 / 1632.083 Output Total 200 / 200 Balance 2240 / 3040 1432.083 / 1432.083 Weight 108.6 kg Intake: IV 2000 / 3000 902.083 / 902.083 Oral 240 / 740 730 / 730 Output: Urine 200 / 200 Other: Urine Color Yellow Yellow Urine Appearance Clear Clear Urine Odor Normal Normal Comment Unmeasured. Patient independent in the toilet void x 1 Voiding Methods Toilet Toilet [facility] Medical History Asthma (Inactive) COPD (chronic obstructive pulmonary disease) (Chronic) Deaf-mutism, congenital (Inactive) Hyperlipidemia (Inactive) Hypertension (Chronic) Insulin dependent diabetes mellitus (Chronic) Pulmonary embolism (Chronic) Surgical History Abdominal hysterectomy MAY 03/22/14 [facility] Endometrial Biopsy (03/01/14) [facility] History of thyroidectomy (Chronic) Family History Mother Essential hypertension Father No problems noted. Sister Mental disorder OCD Grandfather Mental disorder ALZ Grandfather No problems noted. Grandmother No problems noted. Grandmother No problems noted. Social History Smoking/Tobacco Use Status: Current every day Tobacco Type: cigarettes Alcohol Intake: never Drug use: Never Substance use type: does not use Do you feel safe at home: Yes Do you feel safe in your relationship?: Yes
--- NOTE | 2019-12-01 15:03 | W.INDIABCONS ---
Date of service: 12/01/19 Time of Service: 15:03 Diabetes Inpatient Consult DESCRIPTION/ASSESSMENT: Appreciate diabetes consult for Tyra Ward. She is hospitalized withCVA. A1c 7.4 BMI 37 Blood sugars [id number] this hospitalization taking moderate insulin correction and her usual Victoza. At home she takes 30u Levemir twice daily in addition to Victoza. INTERVENTION: Suggest she take her usual Levemir or a reduction of 10% for hospitalization. PLAN: She is being discharged prior to a visit. Time Spent in Nutritional Counseling and Treatment: 0 minutes face to face
[2019-12-01 15:30] VITALS: BP 140/76; PULSE 65; RESP 18; TEMP 36.8; O2SAT 92
--- NOTE | 2019-12-01 16:19 | PDOC.CMDIS ---
- If Service Date Differs Date of service: 12/01/19 Time of Service: 16:19 LACE Index Scoring Tool - Questions: Length of Stay (in days): 2 Acuity (Admit via E.D.?): Yes Comorbidities: Diabetes w/o Complication, Chronic Pulmonary Disease E.D. Visits: 3 - Answers: Total Score: 11 Risk of Readmission: High Risk Care Management Discharge Reason for Hospitalization: TIA Discharge Plan: Tyra will be discharged home with no new services. She will follow up with her PCP and discharge plan of care. She will transport via private vehicle with family. Patient/Family Education Needs: Discharge plan, limitations, follow up plan, Ask Me Three.
--- NOTE | 2019-12-01 16:36 | CHAPLAIN ---
Tyra was resting in bed when I visited. We had a short conversation using her communication board. I explained my role and offered support.
--- NOTE | 2019-12-07 17:26 | INDS_ITS ---
Date of service: 12/07/19 PT Notes Visit Reasons: dizziness, headache Physical Therapy Inpatient Discharge Summary Date: 12/07/2019 Dates of Service: 11/30/2019 only This is a clinical summary of care provided on the duration of dates listed above. No charge was made in the completion of this documentation. Referring Doctor: Isai Anthony PT Orders: PT CONSULT: Limited ability to ambulate; TIA with unsteady gait Precautions: fall, standard Patient Profile/Admitting Diagnosis: Patient admitted 11/29/2019 due to unsteady gait. Diagnosed with TIA and admitted for observation. PMHX: Asthma (Inactive) COPD (chronic obstructive pulmonary disease) (Chronic) Deaf-mutism, congenital (Inactive) Hyperlipidemia (Inactive) Hypertension (Chronic) Insulin dependent diabetes mellitus (Chronic) Pulmonary embolism (Chronic) Social History/Home Situation: Patient lives in a multi-level home with 3 IRA with rail. She typically ambulates independently. She states that she has a walker, although it is currently in [place]. Equipment Owned/DME: Owns a walker, although does not currently have access to it. Unclear whether this was issued directly to patient in the past. Subjective: NT Objective: General Observation: NT Mental Status: NT Pain: NT Vital Signs: NT ROM: Right Upper Extremity: WFL Left Upper Extremity: WFL Right Lower Extremity: WFL Left Lower Extremity: WFL Strength: Right Upper Extremity: Shoulder flexion 3/5 or greater. Biceps and triceps 3/5 or greater. 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 Left Upper Extremity: Shoulder flexion 3/5 or greater. Biceps and triceps 3/5 or greater. 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 Right Lower Extremity: Hip flexion 4+/5. Quads 4+/5. Hamstrings 4/5. Ankle dorsiflexion 5/5. Left Lower Extremity: Hip flexion 4+/5. Quads 4+/5. Hamstrings 4/5. Ankle dorsiflexion 5/5. Sensation: Sensation is intact to light touch through the plantar aspects of both feet Bed Mobility/Transfers: Supine?sit: Supervision Sit?supine: Supervision Sit?stand: CGA, with complaints of increasing dizziness Stand?sit: CGA Bed?chair: FW W, CGA Gait: Patient ambulates 4 feet with FW W and CGA. She requires max assist for management of lines. During ambulation, she desaturates to 80%, and complains of ongoing dizziness. She is able to sit up to the chair for 3 minutes, after which she requests assistance back to bed. Balance: Static Sitting: Normal Dynamic Sitting: Good Static Standing: Good Dynamic Standing: Fair Special Tests: Romberg test is positive with right posterior lateral loss of balance. Patient is able to demonstrate small base of support standing with eyes open, unsupported x10 seconds Coordination is intact with rapid alternating movements of the upper extremities. Mildly diminished with rapid alternating movements of the lower extremities. Fine motor is intact with thumb to digit tapping Assessment: Patient is a 54 year old female referred to physical therapy services with the diagnosis of limited ability to ambulate, with medical diagnosis of TIA with unsteady gait. Patient presented with clinical signs and symptoms consistent with diagnosis, complicated by significant limitations in activity tolerance with oxygen desaturation with even short distance ambulation. She demonstrated the following impairment level findings: 1. Decreased activity tolerance, with oxygen desaturation with 4 feet of ambulation 2. Decreased lower extremity strength 3. Persistent headache 4. Decreased balance Impairments contributed to the following functional limitations: 1. Unable to tolerate household distance ambulation 2. [place] on external support via wheeled walker for safe short distance ambulation 3. Decreased safety with sit to stand transfers 4. Unable to safely manage stairs due to severe limitations in activity tolerance Goals: Goals X1 week 1. Supine-Sit: Independent NOT MET 2. Sit-Supine: Independent NOT MET 3. Sit-Stand: Supervision NOT MET 4. Stand-Sit: Supervision NOT MET 5. Bed-Chair: Supervision with least restrictive device NOT MET 6. Chair-Bed: Supervision with least restrictive device NOT MET 7. Gait: Supervision x50 feet with least restrictive device NOT MET 8. Stairs: CGA x3 stairs with bilateral rails v DISCHARGE RECOMMENDATIONS: DC to home. TREATMENT CODE/TIME: NC. Thank you very much for this referral. Magdalena Alonso PT, DPT, CLT [facility] Inpatient [facility] at [facility]
== END 2019-12-01 17:56 | disposition home or self-care (01) ==
LOC: ER 11-30 00:18 → ICU 11-30 00:46 → MS 11-30 14:41
PROVIDERS: Admitting Provider Family Medicine; Emergency Provider Emergency Medicine; PCP Family Medicine; Visit Provider Family Medicine
DX: R42 Dizziness and giddiness (principal); R51 Headache; R26.81 Unsteadiness on feet; E11.9 Type 2 diabetes mellitus without complications; H91.3 Deaf nonspeaking, not elsewhere classified; I25.10 Atherosclerotic heart disease of native coronary artery without angina pectoris; J44.9 Chronic obstructive pulmonary disease, unspecified; Z79.01 Long term (current) use of anticoagulants; I10 Essential (primary) hypertension; Z86.73 Personal history of transient ischemic attack (TIA), and cerebral infarction without residual deficits; E78.00 Pure hypercholesterolemia, unspecified; Z95.1 Presence of aortocoronary bypass graft; Z86.711 Personal history of pulmonary embolism; Z79.4 Long term (current) use of insulin; Z79.82 Long term (current) use of aspirin; E78.5 Hyperlipidemia, unspecified; F17.210 Nicotine dependence, cigarettes, uncomplicated; E66.9 Obesity, unspecified
CPT/HCPCS: 36415; 70544; 70553; 80053; 85027; 93005; 96360; 96361; 97110; 97112; 97162; 97530; 99220; 99233; 99238; 99285; 70450; 83735; 84443; 84484; 85025; 85610; 85730; 93010; 99217; 99226; G0378; J3490

== ENCOUNTER 2020-05-03 07:30 | Outpatient (CLI) | payer MEDICARE, SELFPAY ==
[2020-05-06 16:53] LABS: SARS-CoV-2 RNA Undetected (Undetected)
== END 2020-05-03 07:50 ==
PROVIDERS: PCP Family Medicine; Visit Provider Family Medicine
DX: Z11.59 Encounter for screening for other viral diseases (principal)
CPT/HCPCS: U0003

== ENCOUNTER 2020-09-25 13:19 | Outpatient (REF) | payer MEDICARE, SELFPAY ==
[2020-09-25 22:59] LABS: FREE T4 1.38 ng/dL (0.76-1.46); TSH 1.07 uIU/mL (0.36-3.74)
[2020-09-25 23:17] LABS: T4 13.5 ug/mL (4.7-13.3)
[2020-09-26 18:49] LABS: T3,Free 3.4 pg/mL (2.8-5.3)
[2020-09-26 19:02] LABS: T3, Total 125 ng/dL (97-169)
== END 2020-09-25 13:39 ==
LOC: NCHCN 13:19
PROVIDERS: PCP Family Medicine; Visit Provider Family Medicine
DX: E03.9 Hypothyroidism, unspecified (principal)
CPT/HCPCS: 84436; 84439; 84443; 84480; 84481